=== PATIENT | female | born 1940 ===

== ENCOUNTER 2016-06-30 02:25 | Inpatient (IN) | payer MEDICARE, BC ==
--- NOTE | ~2016-06-30 | EEG ---
Electroencephalogram [facility] [address] [place]. [address] NAME: JEWELS MARTIN : 40 STATUS : ADM IN PAT#: [id number] AGE: 75 ADM/REG DATE : 06/30/16 MR#: [id number] REPORT SERV DATE: 07/02/16 DICTATED BY: DATE: REPORT STATUS : Draft TRANSCRIBED BY: MODL DATE: 07/02/16 CLINICAL INDICATIONS: Encephalopathy, right hemiparesis. DESCRIPTION: This EEG was performed using 10/20 electrode placement system. During the EEG study, the patient was noted to have generalized slowing as well as disorganized background, and the patient noted to have muscle artifact mostly in the bilateral frontal area as well as sharp wave from the bilateral posterior hemispheres that persisted throughout the EEG study. In addition, triphasic wave was also seen during the bilateral posterior hemispheres throughout the EEG study, but not as prominent as sharp waves. The photic stimulation was performed. No clear driving response was seen. Hyperventilation was not performed secondary to the patient's underlying encephalopathy. The patient was noted to have jerking episodes, it was appropriate with associated sharp wave during the EEG study. INTERPRETATION: This EEG study obtained during awake and drowsy state when the patient was encephalopathic, and it will be considered abnormal secondary to presence of persistent sharp wave in the bilateral posterior hemispheres as well as disorganized underlying cerebral background activity and generalized slowing. In addition, triphasic wave was also seen during the EEG study concerning for combination of underlying seizure disorder versus encephalopathy. Clinical correlation is recommended. [facility]/MODRobert Seth Dinero MD / [id number] CC: DO Mihaela Mcgraw M.D.
--- NOTE | ~2016-06-30 | DS ---
Discharge Summary [facility] [address] [place]. [address] NAME: JEWELS MARTIN : 40 STATUS : DIS IN PAT#: [id number] AGE: 75 ADM/REG DATE : 06/30/16 MR#: [id number] REPORT SERV DATE: 07/17/16 DICTATED BY: RAFAEL ANTON DATE: 07/16/16 REPORT STATUS : Draft TRANSCRIBED BY: MODL DATE: 07/16/16 ADMISSION DATE: 06/30/2016 DISCHARGE DATE: 07/16/2016 CONSULTANTS: Dr. Dinero and Dr. Abdul, Neurology; Dr. Xenia Huynh, Pulmonary; Dr. Javi Kelly, Infectious Disease. DISCHARGE PROBLEM LIST: 1. Right upper extremity worsening weakness, unclear etiology, but with previous stroke leaving right arm weak chronically. 2. Metabolic encephalopathy, partially medication induced. 3. Exacerbation of oxygen-dependent chronic obstructive pulmonary disease with acute hypoxia. 4. Obstructive sleep apnea, requiring CPAP. 5. Hypertension. 6. Diabetes mellitus type 2. A1c 5.5. 7. Enterococcal urinary tract infection, treated and resolved. 8. 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 9. Fibromyalgia. 10.Newly found right middle lobe nodule 2.3 x 1.8 cm with right paratracheal lymphadenopathy. 11.Left thyroid nodule. 12.History of peripheral arterial disease with previous carotid endarterectomy. HISTORY: This patient was brought to the emergency room. She has a history of old stroke 17 years ago with right-sided weakness for which she uses a motorized wheelchair, but is able to get around and actually even drives. Prior to coming to the hospital, she was reportedly much weaker on her right side than her usual and reportedly having some difficulty with getting words out. She was referred to our team for inpatient care. Imaging included on admission, CT scan of the brain without contrast showing no acute abnormalities, [id number] atrophy and white matter changes. Chest x-ray on admission with diffuse interstitial changes suggesting possible edema or infiltrate. She also had a CT of the abdomen which showed a lot of stool. No acute abnormalities there. Dilatation of the thoracic and abdominal aorta to 3.3 cm. There were pulmonary nodules noticed in the right middle and right lower lobe. CT of her lumbar spine done because of back pain showed no acute abnormalities, some disc disease at L4-5. CT of the thoracic spine, no acute abnormalities. MRI of the brain on 06/30/2016, no acute abnormalities. Unusual appearance of the right carotid with distal common carotid dilatation and stenosis at the origin of the internal carotid and no inflow seen in the right external carotid. Carotid Doppler was recommended and performed on 07/02/2016 revealing a category 1 disease on the right and left internal carotids, right vertebral with antegrade flow. Right external carotid and left vertebral artery were not visualized. CT of her cervical spine revealed levoscoliosis, could be positional, chronic peripherally sclerotic 5 x 10 probable subcortical cystic degenerative change, anterior left side of the odontoid portion of the C2 vertebrae, asymmetric nodular enlargement of the left lobe of the thyroid with the largest hypodense Discharge Summary [address] [place]. [address] NAME: JEWELS MARTIN : 40 STATUS : DIS IN PAT#: [id number] AGE: 75 ADM/REG DATE : 06/30/16 MR#: [id number] REPORT SERV DATE: 07/17/16 DICTATED BY: RAFAEL ANTON DATE: 07/16/16 REPORT STATUS : Draft TRANSCRIBED BY: VIVIEN DATE: 07/16/16 nodule 5 mm. CTA of the chest on 07/01/2016, no pulmonary embolism, patchy infiltrate right middle lobe, both lower lobes suggesting possible pneumonia, 2.3 x 1.8 cm nodule of right middle lobe, suspicious for neoplastic. Recommended for followup with PET scan or biopsy. Right peritracheal, right hilar and subcarinal adenopathy noted. Venous Doppler of her legs, no evidence of DVT. Reportedly, the patient was intolerant of BiPAP and anxious and had to be sedated, had more confusion. Neurology at one point in time did an EEG and thought some slightly diffuse slowing consistent with encephalopathy. At one point, they started her on Keppra and also gave her some Seroquel. The patient became obtunded. She was on antibiotic coverage per chance. She had pneumonia. ID saw the patient. They felt she had a urinary tract infection. Spinal tap was done on 07/07/2016. Normal white blood count. Glucose was 81. Protein slightly elevated at 52.7. Spinal fluid Gram stain and culture negative. Bacterial antigens were negative. Cryptococcal antigen negative. No encapsulated yeast seen. No acid-fast bacilli seen. The patient's daughter felt that some of her mental status changes might be that she had recently come off Zoloft. She will be started back on Zoloft by Neurology and gradually they tapered down and off her Keppra and down and off her Seroquel. As this was accomplished, the patient became steadily more alert, clear of mind, and back to her baseline mentally. The patient had hypoxia during that time which required additional respiratory support, but by the time of discharge, she has been on her usual nighttime CPAP and daytime 4 L and been maintaining quite well. She is felt to need inpatient rehab. Those arrangements have been made with [facility]. She and daughter are in agreement. It is very important for her to have follow up with her manager department, Dr. Adela Ochoa within two weeks to follow up that right middle lobe nodular finding and the adenopathy. DISCHARGE MEDICATIONS: Lipitor 20 mg at bedtime, baclofen 10 mg at bedtime, vitamin D 1000 units in the morning and 3000 units in the evening, iron sulfate 300 mg daily, Plavix 75 mg daily, Levemir 30 units subcu at bedtime, NovoLog 10 units subcu before each meal t.i.d., NovoLog level 1 before meals and at bedtime, Imdur 30 mg daily, Singulair 10 mg at bedtime, Protonix 40 mg daily, Florastor capsule twice a day, Zoloft 100 mg at bedtime, Brovana 15 mcg inhaled twice a day, Pulmicort Respules 0.5 mg twice a day, Nasonex nasal spray two puffs twice a day, DuoNeb q.4 hours p.r.n. shortness of breath, Tylenol 650 q.6 hours p.r.n. pain, aspirin 81 mg daily, Glucophage 500 mg b.i.d. (at discharge, her creatinine is 0.91), glucose tablets p.r.n. hypoglycemia. She is to wear her oxygen 4 L nasal cannula continuously. She is to wear her CPAP from home any time she sleeps whether tonight or nap time. I spent 39 minutes today with the patient and with discharge planning. DICTATED BY: Rafael Anton M.D. Discharge Summary [address] [address] NAME: JEWELS MARTIN : 40 STATUS : DIS IN PAT#: [id number] AGE: 75 ADM/REG DATE : 06/30/16 MR#: [id number] REPORT SERV DATE: 07/17/16 DICTATED BY: RAFAEL ANTON DATE: 07/16/16 REPORT STATUS : Draft TRANSCRIBED BY: VIVIEN DATE: 07/16/16 GRETA/VIVIEN Rafael Anton M.D. / [id number] CC: Rowan Deshpande M.D. Seong-joo Jeong, M.D. [facility]
--- NOTE | ~2016-06-30 | EEG ---
Electroencephalogram [address] [address] [place]. [address] NAME: JEWELS MARTIN : 40 STATUS : ADM IN PAT#: [id number] AGE: 75 ADM/REG DATE : 06/30/16 MR#: [id number] REPORT SERV DATE: 07/10/16 DICTATED BY: MIKAEL ABDUL DATE: 07/10/16 REPORT STATUS : Draft TRANSCRIBED BY: MODL DATE: 07/10/16 ELECTROENCEPHALOGRAPHY REPORT REQUESTING PHYSICIAN: Dr. Harris Bland. LOCATION OF THE PATIENT: [facility], bed 2. INTERPRETING PHYSICIAN: Mikael Abdul MD. AGE: 75. REASON FOR EEG: Abnormal behavior with seizure-like activity. 23 surface electrodes, 10-20 international placement was used. The patient was noted to have episodes of staring and unresponsiveness; intermittent left arm and shoulder jerking. The background activity when the patient appeared more alert was of 9 to 10 cycles per second located in the posterior head regions. Large amount of low-voltage beta range activity was scattered throughout which may represent medication effect. Intermittently, the patient appeared to have voluntary shaking of the left arm which did not correspond to any seizure activity. During the asleep portion of the recording, no paroxysmal or epileptiform activity was seen. Abrupt changes occurred with the patient appearing to go into very deep sleep intermittently. Sleep spindles were seen anteriorly. The EEG was observed at the patient's bedside when the patient was aroused. She began twitching her left arm and head. At that time, no paroxysmal activity was seen to correspond to her "abnormal movements". The patient kept her eyes open staring to the left. Increase of muscle activity was noted at that time. child monitor remained stable with heart rate of approximately 88 beats per minute. IMPRESSION: ABNORMAL EEG CHARACTERIZED BY PRESENCE OF INTERMITTENT ABRUPT CHANGES BETWEEN AWAKE AND SLEEP STAGE DESPITE THE CONTINUOUS RECORDING AND THE PATIENT BEING OBSERVED DURING HER SHAKING EPISODES. NO CORRESPONDING EPILEPTIFORM ACTIVITY WAS SEEN AT THAT TIME. OVERALL BACKGROUND ACTIVITY APPEARS TO BE SLIGHTLY DIFFUSELY SLOW WHICH MAY REPRESENT PRESENCE OF UNDERLYING ENCEPHALOPATHY. CLINICAL CORRELATION IS RECOMMENDED. PIERRE/VIVIEN Mikael Abdul MD / [id number] CC: Rowan Deshpande M.D.
--- NOTE | ~2016-06-30 | IDS ---
Interim Discharge Summary [facility] [address] [place]. [address] NAME: JEWELS MARTIN : 40 STATUS : ADM IN PAT#: [id number] AGE: 75 ADM/REG DATE : 06/30/16 MR#: [id number] REPORT SERV DATE: 07/03/16 DICTATED BY: COLLEEN SMILEY DATE: 07/03/16 REPORT STATUS : Draft TRANSCRIBED BY: MODL DATE: 07/03/16 ADMISSION DATE: 06/30/2016 DISCHARGE DATE: This is going to be a very brief interim summary as I am escalating care to the IMCU for possible status epilepticus, however, may be pseudo-seizure depending on if seizure is partial versus generalized. Patient is mouthing intelligent words while she is jerking her left arm, however, very short phrases such as mama and no one asked about getting a blood draw. In summary, this is a 75-year-old female with known history of chronic hypoxic respiratory failure due to COPD on 4 L oxygen with TREVON on nasal CPAP-like device, significant claustrophobia concerns with generalized anxiety disorder likelihood for which she almost has to be sedated to tolerate BiPAP. The patient has a known additional history of CAD and also PAD with carotid endarterectomy done on the right at [facility] in 04/2016. At that time, no significant bleeding and epistaxis on subcutaneous heparin or Lovenox, known history of suspected stroke, unclear radiographic confirmation, residual right-sided hemiparesis, insulin- dependent type 2 diabetes, hypertension, hyperlipidemia, fibromyalgia, appendectomy, cholecystectomy. The patient came in initially on 06/30/2016. At that time, the patient from a baseline of having a motorized wheelchair and having intelligent conversation. 9 or 10 o'clock in the evening prior to admission, she had complete loss of the right side of her body and she had dysarthria with difficulty getting words out. The patient had some mild volume overload initially requiring 5 L of oxygen on top of her 4. She was diuresed. The patient was otherwise doing well when initially was seen by Neurology for which an MRI eventually showed no acute abnormality, some chronic deep white matter, microvascular changes, and atrophic changes. No suspected sign of old stroke. Would defer to Neurology regarding that interpretation, had an abnormality of the carotids, which prompted more specific carotid ultrasound that showed findings compatible with category 1 disease. The patient has been complaining of right-sided weakness as a result. I got a cervical spine CT that showed chronically sclerotic 5 x 10 mm subcortical cystic degeneration of the C2 vertebra and an asymmetric nodular enlargement of the left lobe of the thyroid. We will consider outpatient thyroid ultrasound. The patient regarding her ROWAN and CKD on CT abdomen and pelvis. No acute abnormality except moderate amount of stool. Patient then the following day, did not do well with her overnight CPAP. Her daughter had to bring it in. The patient was significantly more hypoxic and more altered, escalated on to non-rebreather, asked for Pulmonary assistance and saw. She has significant pain in her right leg, as a result, we got an ultrasound, it was negative and did a CT of her chest rule out any PE to explain her hypoxia and rather than PE that was not shown to see possible aspiration for which we prompted her on IV Zosyn. She clinically improved the next day, but then I noticed her mental status had not much improved, and so I noticed she started jerking in her right face as I was speaking to her and asked for Neurology for EEG and Keppra load. Keppra was changed to 50 b.i.d. EEG was suggestive of a seizure, and this morning she was mentally Interim Discharge Summary [address] [address] NAME: JEWELS MARTIN : 40 STATUS : ADM IN [facility]#: [id number] AGE: 75 ADM/REG DATE : 06/30/16 MR#: [id number] REPORT SERV DATE: 07/03/16 DICTATED BY: COLLEEN SMILEY DATE: 07/03/16 REPORT STATUS : Draft TRANSCRIBED BY: MODRobert DATE: 07/03/16 better in the morning. Then, when I saw her she started spontaneously moving her left face and her left arm where as previously it was her right cheek and she was mouthing the word 'mama' and then mouthed the word 'no' when asked to take a blood withdrawal. As a result, we gave her 1 g of Keppra and 200 of IV Vimpat. I spoke to Dr. Abdul and get a stat EEG and sent the patient over [facility] for closer observation. I spoke with the daughter, who is in [place], who left on day 2 of hospitalization to [place], is possibly going to return earlier. Blood cultures, no growth to date. EEG is pending. Could consider possible LP if her mental status does not improve. IR wants a five-day washout of Plavix. We will get a text study to determine Plavix' anti-platelet efficacy. Questions were answered. It took well over 30 minutes to do. ALEJANDRO/VIVIEN Colleen Smiley DO / [id number] CC: Colleen Smiley DO
--- NOTE | ~2016-06-30 | CN ---
Consultation Report [facility] [address] [place]. [address] NAME: JEWELS GALVAN : 40 STATUS : ADM IN PAT#: [id number] AGE: 75 ADM/REG DATE : 06/30/16 MR#: [id number] REPORT SERV DATE: 07/02/16 DICTATED BY: XENIA DOE DATE: 07/01/16 REPORT STATUS : Draft TRANSCRIBED BY: MODL DATE: 07/01/16 PULMONARY CONSULTATION DATE OF CONSULTATION: 07/01/2016 REASON FOR CONSULTATION: Acute worsening of hypoxia. HISTORY OF PRESENT ILLNESS: Note-the history is taken primarily from the available medical record as the patient is very sleepy and provides a vague history only. Ms Galvan is a 75-year-old white female with COPD, obstructive sleep apnea-on CPAP, chronic hypoxia, on supplemental oxygen at a flow rate of 4 L/minute and prior CVA who was admitted with possible recurrent CVA. She was noted to have an elevated BNP, but no evidence of COPD exacerbation on admission. She was diuresed and treated with her home medications for COPD as well as her home CPAP and supplemental oxygen. She was noted to have marked worsening in hypoxia today, so Pulmonary was consulted. She has a remote history of the CVA with residual right hemiparesis. Prior to admission, she noted a marked increase in her right- sided weakness which she described at admission as "complete loss of the use of the right side of her body." Workup has been ongoing for her right-sided weakness. She was being diuresed as described above due to an elevated BNP and evidence of pulmonary edema on chest x-ray. She was also noted to have hypoxia beyond her baseline that responded to her supplemental oxygen flow rate being increased to 5 L/minute. She was doing well until earlier today when she developed the marked increase in hypoxia as described. PAST MEDICAL HISTORY: 1. COPD. 2. Chronic hypoxia-on supplemental oxygen at a flow rate of 4 L/minute via nasal cannula 24 hours per day. 3. Obstructive sleep apnea-on CPAP. 4. Carotid artery disease with right carotid endarterectomy, 04/2016. 5. Remote history of CVA with residual right hemiparesis. 6. Insulin-requiring diabetes. 7. Hyperlipidemia. 8. Hypertension. 9. Fibromyalgia. 10.Tonsillectomy. 11.Hysterectomy. 12.Cholecystectomy. 13.Appendectomy. 14.Previous skin cancer. 15.Iron deficiency. 16.Seasonal allergies. 17.GERD. Consultation Report [facility] [address] [place]. [address] NAME: JEWELS GALVAN : 40 STATUS : ADM IN PAT#: [id number] AGE: 75 ADM/REG DATE : 06/30/16 MR#: [id number] REPORT SERV DATE: 07/02/16 DICTATED BY: XENIA DOE DATE: 07/01/16 REPORT STATUS : Draft TRANSCRIBED BY: VIVIEN DATE: 07/01/16 FAMILY HISTORY: There is no documented family history of pulmonary diseases. SOCIAL HISTORY: The patient admits to a remote history of smoking, but is unable to give further details. Per the medical record, she is currently not smoking. She has no history of alcohol use, past/present drug use or chewing tobacco. There is no documented history of occupational exposures. MEDICATIONS: Outpatient and inpatient medications were reviewed and are as documented in the record. Pulmonary medications as an outpatient include Singulair 10 mg once daily, albuterol rescue inhaler one puff as needed, Combivent one puff q.6 hours, mometasone one puff daily, and Anoro Ellipta one dose daily. ALLERGIES: CODEINE AND HEPARIN. REVIEW OF SYSTEMS: A very limited systems review was conducted and is remarkable for the symptoms as described in the history of present illness. PHYSICAL EXAMINATION: VITAL SIGNS: Temperature 98.2 degrees, heart rate 79, blood pressure 111/61, respiratory rate 16, oxygen saturation 98% on 80% oxygen/27 L Vapotherm. GENERAL: Elderly white female appear sleeping without CPAP. Snoring mildly. Awakens to tactile stimuli, but is somewhat confused. Does not respond all questioning though responses are appropriate. HEENT: Normocephalic. Atraumatic. There is no scleral icterus. The conjunctivae are clear. NECK: Supple. No lymphadenopathy is noted. LUNGS: Fair effort. There are diminished breath sounds throughout. There are few coarse rhonchi particularly in the anterior lung wall. There are no crackles or wheezes. HEART: Regular rate and rhythm. No ectopy is noted. ABDOMEN: Soft. Nontender. Nondistended. There are normal bowel sounds in all four quadrants. BILATERAL EXTREMITIES: There is bilateral lower extremity tenderness to palpation. There is trace pretibial edema, but no cyanosis or clubbing. NEUROLOGIC: A limited exam was conducted as the patient is resistant following commands and sleepy as described above. There is significant right-sided weakness. SKIN: No rashes are noted. There is generalized pallor. LABORATORY RESULTS: Labs were reviewed and are as documented in the record. The white blood cell count is 8.8. On admission, the BNP was 586.9. The arterial blood gas done today revealed a pH of 7.43, pCO2 of 41, and a pO2 of 57 on supplemental oxygen at 90%. IMAGING: The chest x-ray done on admission revealed the left lower lobe infiltrate and increased interstitial markings. Consultation Report [facility] [id number] [facility] [place]. [address] NAME: JEWELS GALVAN : 40 STATUS : ADM IN [facility]#: [id number] AGE: 75 ADM/REG DATE : 06/30/16 MR#: [id number] REPORT SERV DATE: 07/02/16 DICTATED BY: XENIA DOE DATE: 07/01/16 REPORT STATUS : Draft TRANSCRIBED BY: VIVIEN DATE: 07/01/16 The chest x-ray done today revealed bilateral lower lobe and right middle lobe infiltrates with some right lower lobe atelectasis. The CT angiogram of the chest done today revealed diffuse mediastinal lymphadenopathy, bilateral lower lobe and right middle lobe infiltrates, and the right middle lobe nodule. No pulmonary emboli were noted. ASSESSMENT AND PLAN: Ms galvan is a 75-year-old white female with a left lower lobe infiltrate plus a new right middle and right lower lobe infiltrate that has occurred since admission, possible new cerebrovascular accident with significant increase in right-sided weakness, increased hypoxia above baseline, history of hypoxia, nodular density in the right lower lobe, and mediastinal lymphadenopathy on CT angiogram of the chest done today and known obstructive sleep apnea. 1. The new infiltrate suspicious for aspiration, particularly in this patient with this new right-sided weakness as described. 2. There is no evidence of chronic obstructive pulmonary disease exacerbation, but the patient does have a history of chronic obstructive pulmonary disease. 3. She has been on Levaquin and Zosyn. 4. Recommend continuing antibiotics. 5. Check sputum-Gram stain and routine culture. 6. Aspiration precautions-would keep the patient n.p.o. until further notice. 7. I recommend swallow evaluation. 8. Bronchodilators-DuoNeb q.4 hours, continue Brovana. 9. Pulmonary toilet-add EzPAP to her current regimen. 10.She is on systemic steroids, but these can be discontinued as there is no evidence of chronic obstructive pulmonary disease exacerbation. 11.We would continue nebulized steroids. 12.Check BNP and continued diuresis if indicated. 13.Check with the chest x-ray in the morning. 14.Check procalcitonin. 15.She has a history of obstructive sleep apnea as noted and uses her home CPAP, but would use hospital BiPAP here with sleep. 16.Titrate her supplemental oxygen as needed, but do not decrease below her baseline flow rate of 4 L/minute. 17.As described, she has a nodular density in the right lower lobe and mediastinal lymphadenopathy. She would benefit from additional workup. We would discuss possible bronchoscopy with biopsy versus additional imaging such as a PET scan or a followup CT scan of the chest when the patient is more alert and appropriate. Thank you very much for this consultation. Further recommendations to follow depending on the patient's response to therapy. PS/MODL Consultation Report [place] [address] [id number] [facility] [place]. [address] NAME: JEWELS GALVAN : 40 STATUS : ADM IN PAT#: [id number] AGE: 75 ADM/REG DATE : 06/30/16 MR#: [id number] REPORT SERV DATE: 07/02/16 DICTATED BY: XENIA DOE DATE: 07/01/16 REPORT STATUS : Draft TRANSCRIBED BY: VIVIEN DATE: 07/01/16 Xenia Doe M.D. / [id number] CC: DO Mihaela Mcgraw M.D.
--- NOTE | ~2016-06-30 | HP ---
History And Physical [id number] [place]. [address] NAME: JEWELS GALVAN : 40 STATUS : REG ER PAT#: [id number] AGE: 75 ADM/REG DATE : 06/30/16 MR#: [id number] REPORT SERV DATE: 06/30/16 DICTATED BY: ISSA MATA DATE: 06/30/16 REPORT STATUS : Draft TRANSCRIBED BY: MODL DATE: 06/30/16 DATE OF ADMISSION: 06/30/2016 POINT OF ENTRY: [facility] Emergency Department. CHIEF COMPLAINT: Right-sided weakness. HISTORY OF PRESENT ILLNESS: Ms. 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 The patient states that approximately 9 or 10 o'clock this evening, she was unable to transfer from her motorized wheelchair to the toilet which she normally is able to do. She describes "complete loss of the use of the right side of her body." The patient also states that for the past few days to few weeks, she has also been having difficulties in getting her words out occasionally. Initial evaluation in the emergency department notable for stable vital signs although was mildly hypoxemic on her baseline 4 L by nasal cannula, requiring up to 5 L. Labs notable for a BNP of 587. Chest x-ray showed some intravascular volume overload. CT scan of the brain was negative. She was subsequently admitted to the Hospitalist Service and was given Lasix 40 mg IV. REVIEW OF SYSTEMS: Comprehensive system otherwise negative unless listed in history of present illness. PAST MEDICAL HISTORY: 1. History of cerebrovascular accident with residual right-sided hemiparesis. 2. Carotid arterial disease status post right carotid endarterectomy at [facility] April 2016. 3. Insulin-dependent diabetes mellitus type 2. 4. Hypertension. 5. Hyperlipidemia. 6. COPD on 4 L by nasal cannula. 7. Skin cancer. 8. Fibromyalgia. 9. Obstructive sleep apnea, on CPAP therapy. SURGICAL HISTORY: 1. Right carotid endarterectomy. 2. Tonsillectomy. 3. Abdominal hysterectomy. 4. Cholecystectomy. 5. Appendectomy. History And Physical [address] [place]. [address] NAME: JEWELS GALVAN : 40 STATUS : REG ER PAT#: [id number] AGE: 75 ADM/REG DATE : 06/30/16 MR#: [id number] REPORT SERV DATE: 06/30/16 DICTATED BY: ISSA MATA DATE: 06/30/16 REPORT STATUS : Draft TRANSCRIBED BY: VIVIEN DATE: 06/30/16 ALLERGIES: ARE TO CODEINE. HOME MEDICATIONS: 1. Albuterol one puff inhalation q.4 hours p.r.n. 2. Aspirin 81 mg daily. 3. Atorvastatin 20 mg at bedtime. 4. Baclofen 10 mg t.i.d. 5. Vitamin D 1000 units daily. 6. Vitamin D 3000 units daily. 7. Plavix 75 mg daily. 8. Ferrous sulfate 325 mg t.i.d. 9. Glipizide 10 mg daily. 10.Insulin 50 units before meals. 11.Levemir 50 units at bedtime. 12.Combivent 1 puff inhalation q.i.d. 13.Metformin 500 mg b.i.d. 14.Toprol-XL 100 mg daily. 15.Nasonex two sprays nasal b.i.d. 16.Mometasone one puff inhalation daily. 17.Singulair 10 mg at bedtime. 18.Protonix 40 mg daily. 19.Anoro Ellipta one inhalation daily. 20.Valsartan 320 mg daily. SOCIAL HISTORY: Denies any tobacco, alcohol, or illicits. FAMILY HISTORY: Mother with coronary artery disease. Father from complication of gunshot wound. Siblings with history of stroke. LABS IMAGIN. White count is 11.1, hemoglobin 12.2, hematocrit is 38.8, platelet count is 351, and INR 1.2. 2. Sodium is 144, potassium 3.9, chloride 109, carbon dioxide 25, BUN 18, creatinine 1.08, glucose is 142, calcium is 9.4, protein 7.3, albumin is 3.0, bilirubin is 0.7, ALT 13, AST 25, alkaline phosphatase is 123. 3. Troponin 0.03. 4. BNP is 587. 5. Urinalysis; specific gravity is 1.016, trace ketones, but no evidence of any infection. 6. Chest x-ray per my review shows some pulmonary venous congestion, intravascular volume overload. No prior for comparison. This is per my review, again. 7. EKG per my review shows normal sinus rhythm with no evidence of any acute ischemic infarction, does show some poor R-wave progression. 8. CT scan of the brain shows no acute changes but does show some chronic ischemic changes. PHYSICAL EXAMINATION: History And Physical [address] [address] NAME: JEWELS GALVAN : 40 STATUS : REG ER PAT#: [id number] AGE: 75 ADM/REG DATE : 06/30/16 MR#: [id number] REPORT SERV DATE: 06/30/16 DICTATED BY: ISSA MATA DATE: 06/30/16 REPORT STATUS : Draft TRANSCRIBED BY: VIVIEN DATE: 06/30/16 VITAL SIGNS: Temperature is 97.9 degrees Fahrenheit, pulse is 82, respirations 16, saturating 91% on 5 L by nasal cannula. Blood pressure 145/78. GENERAL: The patient is awake, alert, in no acute distress. Resting comfortably. She is a chronically ill-appearing elderly female. No family is at bedside. HEENT: Atraumatic and normocephalic. Moist mucous membranes. Pupils are equal, round, reactive to light and accommodation. Extraocular eye movements are intact. No scleral icterus. NECK: No jugular venous distention. No carotid bruits. CARDIAC: Regular rate and rhythm. No murmurs, rubs, or gallops. Normal S1, S2. LUNGS: On oxygen, but in no respiratory distress. Does have some decreased breath sounds at bases as well as prolonged respiratory phase but no wheezes, rhonchi, or crackles appreciated. ABDOMEN: Soft, nontender, nondistended with good bowel sounds. No rebound, guarding, or rigidity. EXTREMITIES: Warm and well perfused. No cyanosis, clubbing, or edema. Does have some evidence of chronic venous stasis changes in lower extremities bilaterally. SKIN: Warm and dry except for noted above. PSYCH: Affect is appropriate. NEURO: Alert and oriented x3. Cranial nerves 2 through 12 are grossly intact but limited by patient's effort. Strength is 3/5 to 4/5 right side, 4/5 to 5/5 left side, again limited by the patient's effort. ASSESSMENT AND PLAN: Ms. Galvan is a 75-year-old female with history of stroke and right-sided hemiparesis who presents with acute onset of worsening right-sided weakness with inability to transfer from her wheelchair to the toilet concerning for possible cerebrovascular accident versus transient ischemic attack. PROBLEM LIST: 1. Worsening right-sided weakness, concerning for possible stroke. 2. Expressive aphasia. 3. Confusion. 4. Intravascular volume overload. 5. Chronic obstructive pulmonary disease, on 4 L by nasal cannula. 6. Insulin-dependent diabetes mellitus, type 2. PLAN: 1. Right-sided weakness. The patient states her right-sided weakness while still worsened at baseline has started to improve so one is concerned for possible TIA given improvement versus maybe superimposed stroke. CT scan of the brain was unremarkable. We will admit the patient to Hospitalist Service, consult Neurology for assistance, check an MRI MRA in the morning. The patient is already on aspirin, statin, Plavix as well as a beta ruchi. 2. Intravascular volume overload. The patient denies any history of congestive heart failure or coronary artery disease but clearly does have evidence of intravascular volume overload. She will receive 40 of IV Lasix here in the emergency department. Follow up echocardiogram in the morning. 3. Expressive aphasia. Unclear as to the timeline of patient's complaints. We will again History And Physical [address] [address] NAME: JEWELS GALVAN : 40 STATUS : REG ER PAT#: [id number] AGE: 75 ADM/REG DATE : 06/30/16 MR#: [id number] REPORT SERV DATE: 06/30/16 DICTATED BY: ISSA MATA DATE: 06/30/16 REPORT STATUS : Draft TRANSCRIBED BY: MODL DATE: 06/30/16 follow up Neurology consultation and MRI. 4. Confusion, not clear as to what the patient's baseline is at this time as there were no family members at bedside to provide corroborating history. Urinalysis is unremarkable. We will check some basic studies including urine drug screen, thyroid function studies, ammonia level, and vitamin B12 levels. Limit sedating medications. 5. COPD. No evidence of acute exacerbation at this time. Continue to monitor. 6. Insulin-dependent diabetes mellitus type 2, holding patient's oral hypoglycemics. Placed her on level 2 sliding scale. Check hemoglobin A1c. 7. DVT prophylaxis. Lovenox subcu. CODE STATUS: The patient wished to be full code. BELEN/VIVIEN Issa Mata MD / [id number] CC: Mihaela Yates M.D.
--- NOTE | ~2016-06-30 | CN ---
Consultation Report [facility] [address] [place]. [address] NAME: JEWELS MARTIN : 40 STATUS : ADM IN PAT#: [id number] AGE: 75 ADM/REG DATE : 06/30/16 MR#: [id number] REPORT SERV DATE: 07/04/16 DICTATED BY: DOT KELLY DATE: 07/04/16 REPORT STATUS : Draft TRANSCRIBED BY: MODL DATE: 07/04/16 INFECTIOUS DISEASE CONSULT DATE OF CONSULTATION: 07/04/2016 REASON FOR CONSULTATION: Possible central nervous system infection. HISTORY OF PRESENT ILLNESS: This is a 75-year-old female, who cannot contribute to the history herself. The history is obtained from the chart. She has a history of a CVA in the past, with right-sided hemiparesis, along with diabetes, hyperlipidemia, and hypertension. According to the Neurology consultation, the patient had complained of a couple months of word-finding difficulties and some memory issues. On 06/29/2016, she developed worsening weakness on her right side of the body such that she was unable to transfer from her wheelchair to the toilet. Initially, on evaluation in the ER. She was awake and alert, but did have some problems with word finding. She did have some mild confusion, mild dysarthria, and stuttering of speech. The patient did not apparently complained of headache, and did not have fever on presentation, and has not had fever since her 06/30/2016 admission. The patient underwent extensive imaging workup as outlined below, which showed no acute findings, as there was concern mainly that she may have suffered another stroke. The patient then developed worsening respiratory distress requiring increasing oxygen support. She had a CT angiography of the chest done on 07/01/2016, which is reviewed and was interpreted as showing no evidence of pulmonary embolus, but patchy infiltrates in the right middle lobe and both lower lobes, suggestive of pneumonia, along with an indeterminate 2.3 x 1.8 cm nodule in the right middle lobe, and some right paratracheal, right hilar, and subcarinal adenopathy. The patient actually received a dose of Levaquin on 06/30/2016, and on 07/01/2016 the Zosyn was added, as there was concern for possible aspiration. She was evaluated by Pulmonary Medicine. She was briefly on steroids between 06/30/2016 and 07/01/2016. Her respiratory status overall has improved over the last 48 hours, although, she remains on 15 L of oxygen via mask. However, her mental status overall is worse and she has had jerking movements of her left arm. The patient did have an EEG, but apparently there was no definite seizure activity, although, she was started on Keppra. Lumbar puncture was ordered, but the patient was on Plavix on admission and her last dose was May 02 and therefore she cannot undergo this until she has been off the Plavix for five days. Antibiotics were changed this morning from the Zosyn and Levaquin to vancomycin and ceftriaxone to cover the possibility of bacterial meningitis. The patient was transferred from the intermediate care unit to the regular floor today. The patient cannot answer any of my questions. PAST MEDICAL HISTORY: In addition to that mentioned above is notable for right carotid endarterectomy in April of [address] [facility] [place]. She also has COPD, fibromyalgia, obstructive sleep apnea. PAST SURGICAL HISTORY: Other surgeries include cholecystectomy, appendectomy, hysterectomy, and tonsillectomy. Consultation Report [address] [address] NAME: JEWELS MARTIN : 40 STATUS : ADM IN [facility]#: [id number] AGE: 75 ADM/REG DATE : 06/30/16 MR#: [id number] REPORT SERV DATE: 07/04/16 DICTATED BY: DOT KELLY DATE: 07/04/16 REPORT STATUS : Draft TRANSCRIBED BY: VIVIEN DATE: 07/04/16 ALLERGIES: CODEINE. PRESENT MEDICATIONS: In addition to the antibiotics mentioned include Decadron, Lipitor, baclofen, Bumex, vitamin D, iron, Flonase, Arixtra ,insulin sliding scale, Imdur Toprol-XL, singular, Protonix, Florastor, Diovan, Levemir, Keppra, and lacosamide. SOCIAL HISTORY: Nonsmoker and nondrinker. FAMILY HISTORY: According to the chart mother had coronary artery disease and some siblings have had strokes. REVIEW OF SYSTEMS: Review of systems cannot otherwise be obtained from the patient. PHYSICAL EXAMINATION: VITAL SIGNS: The patient weighs 89 kg. She is afebrile. Blood pressure 147/76, pulse has been in the 110 to 116 range, and respiratory rate 18 to 20. GENERAL: The patient is lying in bed. Her gazes to the right. She does not respond to questions except an occasional grunting noise. She would not follow any commands for me. HEAD AND NECK: She does seem to have some meningismus when I tried to flex her neck. She will open her mouth for me. The conjunctivae show some minimal injection on the left. No significant adenopathy in the neck. LUNGS: Diminished breath sounds. Few soft rhonchi in the lateral bases. CARDIAC: Tachycardic regular. Normal S1 and S2. No murmur, gallop, or rub. ABDOMEN: Mildly obese. Soft and nontender. No masses appreciated. EXTREMITIES: Show scattered ecchymoses on her arms. Trace edema. She has two peripheral IVs without phlebitis. NEUROLOGIC: Exam is notable for the mental status as described above. She has increased muscle tone on the right. The right toe is downgoing with Babinski testing left toe was upgoing. Reflexes are difficult to assess. LABORATORY STUDIES: White blood cell count on admission 11.1, it was 8.5 on 07/01/2016, 12.7, yesterday, 12.9 today; hemoglobin 12.0, platelets 299. Procalcitonin on 07/02/2016 was 0.05, today 0.14; creatinine 0.95. Albumin 3.0. On admission alkaline phosphatase was 123. Other liver function tests normal. CPK was normal. Most recent blood gas shows a pH of 7.41, pCO2 of 47, PO2 of 74 on 40% FiO2 yesterday. Microbiology studies; admission urinalysis are negative. On 07/01/2016, blood cultures x2 sets negative, although, after first dose of antibiotics. On 07/02/2016, urinalysis from her Arce catheter shows large leukocyte esterase, 150 white blood cells, and urine culture is growing greater than 100,000 colonies of gram-positive cocci. IMAGING STUDIES: On admission, she had a CT scan of the brain without IV contrast. CT scan of the abdomen and pelvis. CT scan of the cervical, thoracic, and lumbar spine. MRI of the brain and MRA. None of these showed any acute findings. Initial chest x-ray appeared Consultation Report [address] [place]. [address] NAME: JEWELS MARTIN : 40 STATUS : ADM IN [facility]#: [id number] AGE: 75 ADM/REG DATE : 06/30/16 MR#: [id number] REPORT SERV DATE: 07/04/16 DICTATED BY: DOT KLELY DATE: 07/04/16 REPORT STATUS : Draft TRANSCRIBED BY: VIVIEN DATE: 07/04/16 clear, but followup chest x-ray on 07/01/2016, showed developing infiltrate left greater than right bases and CT scan is as noted above. Carotid ultrasound on 07/02/2016, showed no notable findings. Lower extremity ultrasound was negative for a DVT. Repeat CT scan of the brain on 07/02/2016 negative. Chest x-rays have improved over the last few days. IMPRESSION: Probable pneumonia and possible aspiration. The patient also may have a catheter associated urinary tract infection. Overall, I doubt central nervous system infection here. Certainly, bacterial meningitis seems unlikely just given the overall history here, with the onset of this right-sided weakness, but lack of headache and lack of fever. Unfortunately, we have no blood cultures prior to antibiotics though. She does seem to have some meningismus on exam at present, but the exam is difficult. Must also consider the possibility of herpes encephalitis. PLAN: Despite the relatively low likelihood I think of a central nervous system infection, since we cannot do a lumbar puncture for three more days. I will continue the vancomycin and ceftriaxone that were started this morning and add IV acyclovir and follow with you. RITA/VIVIEN Dot Kelly M.D. / [id number] CC: Harris Bland,
--- NOTE | ~2016-06-30 | CN ---
Consultation Report [facility] [address] [place]. [address] NAME: JEWELS MARTIN : 40 STATUS : ADM Raquel PAT#: [id number] AGE: 75 ADM/REG DATE : 06/30/16 MR#: [id number] REPORT SERV DATE: 06/30/16 DICTATED BY: DATE: REPORT STATUS : Draft TRANSCRIBED BY: MODL DATE: 06/30/16 NEUROLOGY CONSULTATION DATE OF CONSULTATION: 06/30/2016 REASON FOR CONSULTATION: Possible stroke. HISTORY OF PRESENT ILLNESS: This is a 75-year-old female with reported previous stroke, resulting in significant right-sided weakness. The patient reports that after stroke, was unable to use the right side at all. After rehab, the patient regained ability to use the right upper extremity for activities of daily living, but still unable to use the right lower extremity and she usually requires a motorized wheelchair for ambulation. The patient was noted to have roughly two months' duration of word finding difficulties that appeared to be mild, as well as memory difficulties with the patient reporting the symptom worse overnight on 06/29/2016 at roughly 9 p.m. The patient also reports worsening right-sided weakness to the point where the patient lost the usage of the right upper extremity as well as difficulty using right lower extremity, unable to get back to the motorized wheelchair. The patient also reports numbness in the right side with the patient reporting a significant difficulty talking as well as a significant difficulty remembering what is going on. The patient's talking appeared to have somewhat improved with the patient's mentation improved overnight. The patient still complains of a significant right-sided weakness, especially with the right upper extremity with the patient still having significant right-sided numbness, compared to prior. The patient in addition also complains of a worsening respiratory issue with the patient having had a breathing problem since the hospitalization in the past. The patient reports worsening baseline respiration even after the patient has to be placed on nasal cannula. No other changes in medication or illness were otherwise reported. No recent chest pain and no recent fever was reported by the patient. REVIEW OF SYSTEMS: Otherwise negative, except for those mentioned in the HPI. PAST MEDICAL HISTORY: Significant for a history of stroke with residual right-sided weakness as well as a history of carotid endarterectomy surgery in 04/2016 with the patient apparently going to rehab afterwards. The patient does have a history of COPD and reports worsening respiratory issues, history of fibromyalgia, obstructive sleep apnea, hyperlipidemia, hypertension, insulin-dependent diabetes. SOCIAL HISTORY: The patient denies current tobacco, alcohol, or recreational drug usage. ALLERGIES: THE PATIENT REPORTS ALLERGY TO CODEINE. HOME MEDICATIONS: Consist of albuterol, aspirin, Lipitor, atorvastatin, baclofen, vitamin D, ferrous sulfate, glipizide, Levemir insulin, Combivent, metformin, Toprol, Nasonex, Singulair, Protonix, Anoro Ellipta, valsartan, mometasone. Consultation Report [id number] [facility] [place]. [address] NAME: JEWELS MARTIN : 40 STATUS : ADM Raquel PAT#: [id number] AGE: 75 ADM/REG DATE : 06/30/16 MR#: [id number] REPORT SERV DATE: 06/30/16 DICTATED BY: DATE: REPORT STATUS : Draft TRANSCRIBED BY: MODL DATE: 06/30/16 FAMILY HISTORY: Significant for coronary artery disease as well as stroke. PHYSICAL EXAMINATION: VITAL SIGNS: At the time of hospital admission overnight, the patient was noted to have vital signs with T-max of 98.1, heart rates of 83 to 97, respirations of 16 to 18, and blood pressure of 134 to 145 over 78 to 83. GENERAL: The patient is well developed, well nourished, in no acute distress. CARDIOVASCULAR: Regular rate and rhythm. No carotid bruits were otherwise auscultated. PULMONARY: Clear to auscultation bilaterally. NEUROLOGICAL: Generally, the patient is mildly anxious with mild stuttering of speech as well as some mild dysarthria. Some word-finding difficulty was also noted at the time of my evaluation. Able to follow simple and two-step commands, although with some mild left/right confusion at the time of my evaluation. Difficulties with registration and recall at the time of my evaluation. Cranial nerves 2 through 12, pupils equal, round, and reactive to light. Extraocular eye movement was noted to be intact with intact [id number] response. The facial expression is mild decreased in the nasolabial fold on the right with the patient reporting a decreased sensation in the right cranial nerve V1, V2, and V3 distribution. Reports intact sensation in the left cranial nerve V1, V2, and V3 distribution. Midline tongue. Normal palatal movement. Mild decreased hearing. The patient was noted to have increased muscle tone as well as contracture in the right upper extremity with increased muscle tone in the right lower extremity. Deep tendon reflex was 3+ in the right upper extremity and 4+ with some spontaneous coldness in the right lower extremity. The patient otherwise demonstrated 3/5 for proximal right upper extremity strength and 1/5 for right upper extremity music manager strength with the patient demonstrating 5/5 for left upper extremity and left lower extremity strength. The patient demonstrated 1/5 for right lower extremity strength and reports a decreased sensation in the right upper and right lower extremity. Gait was not evaluated secondary to the patient's weakness. The patient at baseline uses a motorized wheelchair for ambulation. No ataxia on [id number] examination in the left upper extremity was noted. LABORATORY STUDIES: Demonstrate sodium 144, potassium 3.9, chloride 109, bicarb 25, BUN of 18, creatinine 1.08, glucose of 142, calcium of 9.4. Serum cholesterol 107, HDL of 26, LDL of 46, and triglyceride of 178. Vitamin B12 was 679. Folate of 48. Free T4 of 1.36. Hemoglobin A1c was 5.5 with ammonia level of 28. BNP of 586.9. White blood cell count of 11.1, hemoglobin of 12.2, hematocrit of 38.8, platelet count of 351. Urinalysis demonstrated greater than 500 protein, otherwise negative leukocyte esterase and negative nitrite. CT scan of her brain demonstrated no significant acute process. The MRI and MRA are pending. IMPRESSION: Right hemiparesis, worse from prior. Concern for a possible new stroke versus a systemic illness causing the patient's symptoms. MRI of the brain without contrast is pending, same with the MRA of the head and neck. Echocardiogram is also pending. We will continue aspirin and Plavix. We will increase the Lipitor to 80 mg p.o. q.h.s. We will also obtain PT/OT to evaluate and treat. NIH Stroke Scale is noted to be 8. Consultation Report [id number] [place]. [address] NAME: JEWELS MARTIN : 40 STATUS : ADM Raquel PAT#: [id number] AGE: 75 ADM/REG DATE : 06/30/16 MR#: [id number] REPORT SERV DATE: 06/30/16 DICTATED BY: DATE: REPORT STATUS : Draft TRANSCRIBED BY: MODL DATE: 06/30/16 RECOMMENDATIONS: 1. MRI of the brain without contrast, which is pending. 2. MRA of the head and neck without contrast, which is also pending. 3. Echocardiogram, pending. 4. Aspirin and Plavix. 5. Lipitor 80 mg p.o. q.h.s. 6. PT/OT. 7. We will check albumin level with morning labs, this patient was noted to have nephrotic type of syndrome as well as edema in bilateral lower extremity. 8. We will check a CT scan of the abdomen and pelvis without contrast for lower back pain as well as abdominal pain. [facility] Seth Dinero MD / [id number] CC: DO Mihaela Mcgraw M.D.
--- NOTE | ~2016-06-30 | DS ---
Discharge Summary [facility] [address] [facility] [place]. [address] NAME: JEWELS MARTIN : 40 STATUS : ADM IN [facility]#: [id number] AGE: 75 ADM/REG DATE : 06/30/16 MR#: [id number] REPORT SERV DATE: 07/06/16 DICTATED BY: Dariusz KEITA DATE: 07/06/16 REPORT STATUS : Draft TRANSCRIBED BY: MODL DATE: 07/06/16 ADMISSION DATE: 06/30/2016 DISCHARGE DATE: DATE OF INTERIM SUMMARY: 07/06/2016. DIAGNOSES AT THE TIME OF INTERIM SUMMARY: Persistent encephalopathy right-sided weakness of uncertain etiology, hypoxic respiratory failure, acute on chronic COPD, insulin-requiring diabetes, hypertension, possible aspiration pneumonia, possible [employer] infection, and enterococcal urinary tract infection. ACTIVE CONSULTANTS: Infectious Disease, Pulmonology and Neurology. PROCEDURES: Planned lumbar puncture for 07/07/2016. BRIEF HOSPITAL COURSE: A 75-year-old female with complex medical history, was admitted with encephalopathy in the setting of prior stroke and right-sided weakness with multiple comorbidities, started on empiric antimicrobial therapy for the possibility of aspiration pneumonia with consult to Pulmonary Service. With regard to her encephalopathy and weakness, Neurology was consulted. MRI of the brain and MRA of the brain showed no new lesion. EEG showed no evidence of seizure activity, and they are currently planning a lumbar puncture. This has been delayed because of previous Plavix administration, which had been held on admission. She should be able to safely have a lumbar puncture to complete evaluation on 07/07/2016. The patient had been on broad-spectrum antimicrobial therapy, but this has been narrowed to Zosyn only which is currently treating the possibility of aspiration pneumonia as well as a known enterococcal UTI that was present on admission. The patient continues to be followed closely by the Neurology Service, the Hospitalist Service, the Pulmonary Service and the ID Service. She currently continues on IV antiepileptic medications per Neurology. We will continue her ongoing other supportive medications with close monitoring of her clinical status and lab data. Further recommendations for ongoing treatment pending results of lumbar puncture which should be done 07/07/2016. Another member of the Hospitalist Team will manage the patient's care starting on 07/07/2016 with ongoing co-management by the specialties mentioned above. DICTATED BY: Dariusz Keita M.D. [facility]IV[facility] Dariusz Keita M.D. / [id number] Discharge Summary [address] [address] NAME: JEWELS MARTIN : 40 STATUS : ADM IN PAT#: [id number] AGE: 75 ADM/REG DATE : 06/30/16 MR#: [id number] REPORT SERV DATE: 07/06/16 DICTATED BY: Dariusz KEITA DATE: 07/06/16 REPORT STATUS : Draft TRANSCRIBED BY: VIVIEN DATE: 07/06/16 CC: Rowan Davila M.D.
[2016-06-30 02:48] LABS: BASOPHILS 0.2 %; BASOPHILS ABSOLUTE 0.02 10/3/uL (0.0-0.16); EOSINOPHILS 1.1 %; EOSINOPHILS ABSOLUTE 0.12 10/3/uL (0.0-0.53); HEMATOCRIT 38.8 % (36.0-48.0); HEMOGLOBIN 12.2 g/dL (12.0-16.0); IMMATURE GRANULOCYTES 0.3 %; IMMATURE GRANULOCYTES ABSOLUTE 0.03 10/3/uL (0.0-0.11); LYMPHOCYTES ABSOLUTE 2.77 10/3/uL (0.67-4.30); MEAN CORPUS HGB CONC 31.4 g/dL (32.0-36.0); MEAN CORPUSCULAR HEMOGLOB 27.1 pg (26.0-34.0); MEAN CORPUSCULAR VOLUME 86.2 fL (80-100); MEAN PLATELET VOLUME 9.9 fL (9.2-13.0); MONOCYTES 6.2 %; MONOCYTES ABSOLUTE 0.69 10/3/uL (0.21-1.20); NEUTROPHILS 67.2 %; NEUTROPHILS ABSOLUTE 7.43 10/3/uL (2.02-8.40); PLATELET COUNT 351 10/3/uL (150-400); RBC DISTRIBUTION WIDTH 15.5 % (12.0-16.0); WHITE BLOOD CELLS 11.1 10/3/uL (4.5-10.5)
[2016-06-30 02:51] LABS: MANUAL DIFF NO %
[2016-06-30 02:59] LABS: INTERNATIONAL NORMAL RATI 1.2 UNITS (-); PROTIME (NOT ORD) 15.4 SEC (12.0-14.5)
[2016-06-30 03:00] LABS: PARTIAL THROMBO TIME 36.4 SEC (22.5-37.2)
[2016-06-30 03:07] LABS: A/G RATIO 0.7 (0.7-1.9); ALKALINE PHOSPHATASE 123 U/L (45-117); BUN (BLOOD UREA NITROGEN) 18 MG/DL (6-23); CALCIUM, SERUM 9.4 MG/DL (8.5-10.4); CHLORIDE, SERUM 109 MMOL/L (96-112); CO2 (CARBON DIOXIDE) 25 MMOL/L (24-34); CREATININE 1.08 MG/DL (0.55-1.02); GFR AFRICAN AMERICAN 58 ML/MIN (>=60); GFR NON AFRICAN AMERICAN 50 ML/MIN (>=60); GLOBULIN 4.3 G/DL (2.5-4.1); GLUCOSE, SERUM 142 MG/DL (60-99); POTASSIUM, SERUM 3.9 MMOL/L (3.5-5.3); SGOT(AST) 25 U/L (5-40); SGPT(ALT) 13 U/L (5-65); SODIUM, SERUM 144 MMOL/L (135-148); TOTAL BILIRUBIN 0.4 MG/DL (0-1.2); TOTAL PROTEIN 7.3 G/DL (6.0-8.5); TROPONIN I 0.03 NG/ML (<0.05)
[2016-06-30 03:11] LABS: ASCORBIC ACID (UR NOT ORDER) NEG (NEG); BILIRUBIN, URINE NEGATIVE (NEG); ER URINALYSIS TAT 0 Hrs 00 Mins; KETONE, URINE TRACE MG/DL (NEG); LEUKOCYTE ESTERASE(NOT OR NEG (NEG); NITRITE (URINE) NEG (NEG); WBC (NOT ORDERED) (RFLEX) 1 (0-5)
[2016-06-30] MEDS ORDERED: PLAVIX PO (03:48)
[2016-06-30] MEDS ORDERED: ANOROELLIPTA INH (03:48)
[2016-06-30] MEDS ORDERED: GLUCOTRO10 PO (03:48)
[2016-06-30] MEDS ORDERED: DIOVAN320 MG PO (03:49)
[2016-06-30] MEDS ORDERED: GLUCPH PO (03:49)
[2016-06-30] MEDS ORDERED: ASMANEX INH (03:50)
[2016-06-30] MEDS ORDERED: NASONEX NAS (03:50)
[2016-06-30] MEDS ORDERED: TOPXL100 PO (03:50)
[2016-06-30] MEDS ORDERED: COMBIVENT RESPIM4 GM INH (03:51)
[2016-06-30] MEDS ORDERED: PROTONIX PO (03:51)
[2016-06-30] MEDS ORDERED: PROVHFA INH (03:52)
[2016-06-30] MEDS ORDERED: LIPITOR20 PO (03:52)
[2016-06-30] MEDS ORDERED: SINGULAIR1 PO (03:52)
[2016-06-30] MEDS ORDERED: LIOR10 PO (03:52)
[2016-06-30] MEDS ORDERED: LEVEMFLXPN SC (03:53)
[2016-06-30] MEDS ORDERED: NOVOLOG SC (03:54)
[2016-06-30] MEDS ORDERED: FERROUS SULF325 M1 PO (03:54)
[2016-06-30] MEDS ORDERED: VITAMIN D31000 UNIT PO ×2 (03:55)
[2016-06-30] MEDS ORDERED: ASAB PO (03:55)
[2016-06-30 09:58] LABS: GLYCOHEMOGLOBIN (HbA1c) 5.5 % (4.7-6.1)
[2016-06-30 10:10] LABS: CHOL/HDL RATIO(NOT ORDER) 4.1 (0-5); CHOLESTEROL 107 MG/DL (< 200); CPK 34 U/L (0-200); FREE T4 1.36 NG/DL (0.76-1.46); HDL CHOLESTEROL 26 MG/DL (> 49); LDL CHOLESTEROL 46 MG/DL (< 130); NON-HDL CHOLESTEROL 81 MG/DL (< 160); TRIGLYCERIDE 178 MG/DL (< 150); TROPONIN I 0.04 NG/ML (<0.05)
[2016-06-30 10:11] LABS: CK-MB 2.4 NG/ML
[2016-06-30 17:33] LABS: CK-MB 2.6 NG/ML; CPK 39 U/L (0-200); TROPONIN I 0.04 NG/ML (<0.05)
[2016-07-01 01:11] LABS: CPK 38 U/L (0-200)
[2016-07-01 01:12] LABS: CK-MB 2.5 NG/ML
[2016-07-01 06:35] LABS: ALBUMIN 3.2 G/DL (3.5-5.0)
[2016-07-01 11:03] LABS: CARBOXYHEMOGLOBIN 0.7 % (0-3); DEVICE HFNC; HCO3 (ACTUAL BICARBONATE) 26.5 MEQ/L (23-27); HEMOBLOGIN CONTENT 13.7 G/DL (12-16); INSTRUMENT SERIAL # 11843; METHEMOGLOBIN 0.3 % (0-3); O2 CONTENT 16.9 VOL% (18-24); PCO2 (CO2 TENSION) 41 MMHG (35-45); PO2 (O2 TENSION) 57 MMHG (79-93); SAMPLE Arterial; pH 7.43 (7.37-7.43)
[2016-07-01 14:59] LABS: CREATININE 1.28 MG/DL (0.55-1.02)
[2016-07-01 18:44] LABS: BASOPHILS 0 %; EOSINOPHILS 0 %; HEMATOCRIT 38.9 % (36.0-48.0); IMMATURE GRANULOCYTES 0.2 %; IMMATURE GRANULOCYTES ABSOLUTE 0.02 10/3/uL (0.0-0.11); LYMPHOCYTES 9.6 %; LYMPHOCYTES ABSOLUTE 0.85 10/3/uL (0.67-4.30); MEAN CORPUS HGB CONC 30.8 g/dL (32.0-36.0); MEAN CORPUSCULAR HEMOGLOB 26.7 pg (26.0-34.0); MEAN CORPUSCULAR VOLUME 86.4 fL (80-100); MEAN PLATELET VOLUME 9.5 fL (9.2-13.0); MONOCYTES 1.9 %; MONOCYTES ABSOLUTE 0.17 10/3/uL (0.21-1.20); NEUTROPHILS 88.3 %; NEUTROPHILS ABSOLUTE 7.78 10/3/uL (2.02-8.40); PLATELET COUNT 349 10/3/uL (150-400); RBC DISTRIBUTION WIDTH 15.6 % (12.0-16.0); WHITE BLOOD CELLS 8.8 10/3/uL (4.5-10.5)
[2016-07-01 18:45] LABS: MANUAL DIFF NO %
[2016-07-01 19:03] LABS: BUN (BLOOD UREA NITROGEN) 32 MG/DL (6-23); CALCIUM, SERUM 8.7 MG/DL (8.5-10.4); CHLORIDE, SERUM 103 MMOL/L (96-112); CO2 (CARBON DIOXIDE) 30 MMOL/L (24-34); CREATININE 1.35 MG/DL (0.55-1.02); GFR AFRICAN AMERICAN 44 ML/MIN (>=60); GFR NON AFRICAN AMERICAN 38 ML/MIN (>=60); GLUCOSE, SERUM 256 MG/DL (60-99); PHOSPHORUS, SERUM 5.1 MG/DL (2.5-4.5); POTASSIUM, SERUM 3.9 MMOL/L (3.5-5.3); SODIUM, SERUM 141 MMOL/L (135-148)
[2016-07-02 04:18] LABS: ALLENS TEST Pos; BE (BASE EXCESS) -0.4 MEQ/L (0 +/- 2.5); CARBOXYHEMOGLOBIN 1.2 % (0-3); HCO3 (ACTUAL BICARBONATE) 24.4 MEQ/L (23-27); HEMOBLOGIN CONTENT 12.2 G/DL (12-16); INSTRUMENT SERIAL # 8083; METHEMOGLOBIN 0.2 % (0-3); O2 CONTENT 15.5 VOL% (18-24); OPERATOR ID 15231; PCO2 (CO2 TENSION) 41 MMHG (35-45); PO2 (O2 TENSION) 68 MMHG (79-93); SAMPLE Arterial
[2016-07-02 07:07] LABS: BASOPHILS 0 %; EOSINOPHILS 0 %; HEMATOCRIT 41.3 % (36.0-48.0); HEMOGLOBIN 12.7 g/dL (12.0-16.0); IMMATURE GRANULOCYTES 0.2 %; IMMATURE GRANULOCYTES ABSOLUTE 0.02 10/3/uL (0.0-0.11); LYMPHOCYTES 11.4 %; LYMPHOCYTES ABSOLUTE 1.19 10/3/uL (0.67-4.30); MANUAL DIFF NO %; MEAN CORPUS HGB CONC 30.8 g/dL (32.0-36.0); MEAN CORPUSCULAR HEMOGLOB 26.9 pg (26.0-34.0); MEAN CORPUSCULAR VOLUME 87.5 fL (80-100); MEAN PLATELET VOLUME 9.7 fL (9.2-13.0); MONOCYTES 2.2 %; MONOCYTES ABSOLUTE 0.23 10/3/uL (0.21-1.20); NEUTROPHILS 86.2 %; NEUTROPHILS ABSOLUTE 9.04 10/3/uL (2.02-8.40); PLATELET COUNT 384 10/3/uL (150-400); RBC DISTRIBUTION WIDTH 15.6 % (12.0-16.0); RED CELL COUNT 4.72 10/6/uL (4.0-5.6); WHITE BLOOD CELLS 10.5 10/3/uL (4.5-10.5)
[2016-07-02 07:20] LABS: BUN (BLOOD UREA NITROGEN) 37 MG/DL (6-23); CALCIUM, SERUM 9.1 MG/DL (8.5-10.4); CHLORIDE, SERUM 106 MMOL/L (96-112); CO2 (CARBON DIOXIDE) 30 MMOL/L (24-34); CREATININE 1.45 MG/DL (0.55-1.02); GFR AFRICAN AMERICAN 41 ML/MIN (>=60); GFR NON AFRICAN AMERICAN 35 ML/MIN (>=60); GLUCOSE, SERUM 215 MG/DL (60-99); PHOSPHORUS, SERUM 4.7 MG/DL (2.5-4.5); POTASSIUM, SERUM 3.7 MMOL/L (3.5-5.3); SODIUM, SERUM 142 MMOL/L (135-148)
[2016-07-02 07:47] LABS: PROCALCITONIN 0.05 ng/mL (<0.5)
[2016-07-02 17:43] LABS: ASCORBIC ACID (UR NOT ORDER) NEG (NEG); BILIRUBIN, URINE NEGATIVE (NEG); KETONE, URINE NEGATIVE (NEG); LEUKOCYTE ESTERASE(NOT OR LARGE (NEG); WBC (NOT ORDERED) (RFLEX) 150 (0-5)
[2016-07-03 10:39] LABS: BE (BASE EXCESS) 3.2 MEQ/L (0 +/- 2.5); DEVICE VM; HCO3 (ACTUAL BICARBONATE) 28.5 MEQ/L (23-27); HEMOBLOGIN CONTENT 13.2 G/DL (12-16); INSTRUMENT SERIAL # 8083; METHEMOGLOBIN 0.3 % (0-3); O2 CONTENT 17.3 VOL% (18-24); PCO2 (CO2 TENSION) 47 MMHG (35-45); PO2 (O2 TENSION) 74 MMHG (79-93); SAMPLE Arterial; pH 7.41 (7.37-7.43)
[2016-07-03 15:23] LABS: CALCIUM, SERUM 8.8 MG/DL (8.5-10.4); CHLORIDE, SERUM 113 MMOL/L (96-112); CO2 (CARBON DIOXIDE) 29 MMOL/L (24-34); GFR AFRICAN AMERICAN 42 ML/MIN (>=60); GFR NON AFRICAN AMERICAN 37 ML/MIN (>=60); GLUCOSE, SERUM 187 MG/DL (60-99); POTASSIUM, SERUM 3.2 MMOL/L (3.5-5.3)
[2016-07-03 15:25] LABS: BUN (BLOOD UREA NITROGEN) 41 MG/DL (6-23); PHOSPHORUS, SERUM 2.8 MG/DL (2.5-4.5); SODIUM, SERUM 151 MMOL/L (135-148)
[2016-07-03 15:27] LABS: BASOPHILS 0.1 %; BASOPHILS ABSOLUTE 0.01 10/3/uL (0.0-0.16); EOSINOPHILS 0.2 %; EOSINOPHILS ABSOLUTE 0.02 10/3/uL (0.0-0.53); HEMATOCRIT 40.7 % (36.0-48.0); HEMOGLOBIN 12.2 g/dL (12.0-16.0); IMMATURE GRANULOCYTES 0.1 %; IMMATURE GRANULOCYTES ABSOLUTE 0.01 10/3/uL (0.0-0.11); LYMPHOCYTES 13.1 %; LYMPHOCYTES ABSOLUTE 1.66 10/3/uL (0.67-4.30); MEAN CORPUSCULAR HEMOGLOB 26.6 pg (26.0-34.0); MEAN CORPUSCULAR VOLUME 88.9 fL (80-100); MEAN PLATELET VOLUME 9.6 fL (9.2-13.0); MONOCYTES 7.7 %; MONOCYTES ABSOLUTE 0.98 10/3/uL (0.21-1.20); NEUTROPHILS 78.8 %; NEUTROPHILS ABSOLUTE 9.98 10/3/uL (2.02-8.40); PLATELET COUNT 328 10/3/uL (150-400); RBC DISTRIBUTION WIDTH 16.1 % (12.0-16.0); RED CELL COUNT 4.58 10/6/uL (4.0-5.6); WHITE BLOOD CELLS 12.7 10/3/uL (4.5-10.5)
[2016-07-03 15:28] LABS: MANUAL DIFF NO %
[2016-07-03 20:29] LABS: TEG - ANGLE 73.6 DEG (53-72); TEG - COAGULATION INDEX 2.3 (-3 TO 3); TEG - RATE 6.5 MIN (5.0-10.0); TEG PLAVIX/EFFIENT/TICLID(ADP) 90.8 % INHIB (< 40)
[2016-07-03 20:30] LABS: MAX AMP (ADP) 24.9 MM (35-68)
[2016-07-04 00:17] LABS: BUN (BLOOD UREA NITROGEN) 40 MG/DL (6-23); CALCIUM, SERUM 8.7 MG/DL (8.5-10.4); CHLORIDE, SERUM 112 MMOL/L (96-112); CO2 (CARBON DIOXIDE) 28 MMOL/L (24-34); CREATININE 1.24 MG/DL (0.55-1.02); GFR AFRICAN AMERICAN 49 ML/MIN (>=60); GFR NON AFRICAN AMERICAN 42 ML/MIN (>=60); GLUCOSE, SERUM 243 MG/DL (60-99); POTASSIUM, SERUM 3.5 MMOL/L (3.5-5.3); SODIUM, SERUM 151 MMOL/L (135-148)
[2016-07-04 05:09] LABS: BASOPHILS 0.2 %; BASOPHILS ABSOLUTE 0.02 10/3/uL (0.0-0.16); EOSINOPHILS 1.2 %; EOSINOPHILS ABSOLUTE 0.16 10/3/uL (0.0-0.53); HEMATOCRIT 40.7 % (36.0-48.0); IMMATURE GRANULOCYTES 0.2 %; IMMATURE GRANULOCYTES ABSOLUTE 0.03 10/3/uL (0.0-0.11); LYMPHOCYTES 19.5 %; MEAN CORPUS HGB CONC 29.5 g/dL (32.0-36.0); MEAN CORPUSCULAR HEMOGLOB 26.5 pg (26.0-34.0); MEAN PLATELET VOLUME 9.8 fL (9.2-13.0); MONOCYTES 9.6 %; MONOCYTES ABSOLUTE 1.24 10/3/uL (0.21-1.20); NEUTROPHILS 69.3 %; PLATELET COUNT 299 10/3/uL (150-400); RBC DISTRIBUTION WIDTH 15.9 % (12.0-16.0); RED CELL COUNT 4.52 10/6/uL (4.0-5.6); WHITE BLOOD CELLS 12.9 10/3/uL (4.5-10.5)
[2016-07-04 05:10] LABS: MANUAL DIFF NO %
[2016-07-04 05:31] LABS: ALBUMIN 2.9 G/DL (3.5-5.0); BUN (BLOOD UREA NITROGEN) 38 MG/DL (6-23); CALCIUM, SERUM 8.9 MG/DL (8.5-10.4); CHLORIDE, SERUM 110 MMOL/L (96-112); CO2 (CARBON DIOXIDE) 28 MMOL/L (24-34); CREATININE 1.14 MG/DL (0.55-1.02); GFR AFRICAN AMERICAN 54 ML/MIN (>=60); GFR NON AFRICAN AMERICAN 47 ML/MIN (>=60); GLUCOSE, SERUM 213 MG/DL (60-99); PHOSPHORUS, SERUM 2.1 MG/DL (2.5-4.5); SODIUM, SERUM 146 MMOL/L (135-148)
[2016-07-04 05:52] LABS: POTASSIUM, SERUM 2.8 MMOL/L (3.5-5.3)
[2016-07-04 06:19] LABS: PROCALCITONIN 0.14 ng/mL (<0.5)
[2016-07-04 14:42] LABS: BUN (BLOOD UREA NITROGEN) 27 MG/DL (6-23); CALCIUM, SERUM 8.6 MG/DL (8.5-10.4); CHLORIDE, SERUM 109 MMOL/L (96-112); CO2 (CARBON DIOXIDE) 32 MMOL/L (24-34); CREATININE 0.95 MG/DL (0.55-1.02); GFR AFRICAN AMERICAN 68 ML/MIN (>=60); GFR NON AFRICAN AMERICAN 59 ML/MIN (>=60); GLUCOSE, SERUM 193 MG/DL (60-99); POTASSIUM, SERUM 3.1 MMOL/L (3.5-5.3); SODIUM, SERUM 148 MMOL/L (135-148)
[2016-07-04 15:50] LABS: OSMOLALITY, URINE 424 MOSM/KG (50-1200)
[2016-07-04 16:02] LABS: SODIUM, URINE 124 MEQ/L
[2016-07-05 06:47] LABS: BASOPHILS 0.1 %; BASOPHILS ABSOLUTE 0.02 10/3/uL (0.0-0.16); EOSINOPHILS 2.5 %; EOSINOPHILS ABSOLUTE 0.38 10/3/uL (0.0-0.53); HEMATOCRIT 40.6 % (36.0-48.0); HEMOGLOBIN 11.8 g/dL (12.0-16.0); IMMATURE GRANULOCYTES 0.2 %; IMMATURE GRANULOCYTES ABSOLUTE 0.03 10/3/uL (0.0-0.11); LYMPHOCYTES 14.7 %; LYMPHOCYTES ABSOLUTE 2.22 10/3/uL (0.67-4.30); MEAN CORPUS HGB CONC 29.1 g/dL (32.0-36.0); MEAN CORPUSCULAR HEMOGLOB 25.7 pg (26.0-34.0); MEAN CORPUSCULAR VOLUME 88.3 fL (80-100); MONOCYTES 8.8 %; MONOCYTES ABSOLUTE 1.33 10/3/uL (0.21-1.20); NEUTROPHILS 73.7 %; NEUTROPHILS ABSOLUTE 11.08 10/3/uL (2.02-8.40); PLATELET COUNT 295 10/3/uL (150-400); RBC DISTRIBUTION WIDTH 15.9 % (12.0-16.0); WHITE BLOOD CELLS 15.1 10/3/uL (4.5-10.5)
[2016-07-05 06:48] LABS: MANUAL DIFF NO %
[2016-07-05 07:09] LABS: A/G RATIO 0.9 (0.7-1.9); ALBUMIN 2.7 G/DL (3.5-5.0); ALKALINE PHOSPHATASE 102 U/L (45-117); BUN (BLOOD UREA NITROGEN) 23 MG/DL (6-23); CALCIUM, SERUM 8.7 MG/DL (8.5-10.4); CHLORIDE, SERUM 114 MMOL/L (96-112); CO2 (CARBON DIOXIDE) 26 MMOL/L (24-34); GFR AFRICAN AMERICAN 84 ML/MIN (>=60); GFR NON AFRICAN AMERICAN 72 ML/MIN (>=60); GLUCOSE, SERUM 142 MG/DL (60-99); PHOSPHORUS, SERUM 2.6 MG/DL (2.5-4.5); POTASSIUM, SERUM 3.6 MMOL/L (3.5-5.3); SGOT(AST) 36 U/L (5-40); SGPT(ALT) 21 U/L (5-65); SODIUM, SERUM 150 MMOL/L (135-148); TOTAL BILIRUBIN 0.3 MG/DL (0-1.2); TOTAL PROTEIN 5.7 G/DL (6.0-8.5)
[2016-07-06 06:08] LABS: BASOPHILS 0.1 %; BASOPHILS ABSOLUTE 0.02 10/3/uL (0.0-0.16); EOSINOPHILS 3.4 %; EOSINOPHILS ABSOLUTE 0.47 10/3/uL (0.0-0.53); HEMATOCRIT 38.6 % (36.0-48.0); HEMOGLOBIN 9.9 g/dL (12.0-16.0); IMMATURE GRANULOCYTES 0.4 %; IMMATURE GRANULOCYTES ABSOLUTE 0.05 10/3/uL (0.0-0.11); LYMPHOCYTES 17.8 %; LYMPHOCYTES ABSOLUTE 2.44 10/3/uL (0.67-4.30); MEAN CORPUSCULAR VOLUME 86.9 fL (80-100); MEAN PLATELET VOLUME 9.9 fL (9.2-13.0); MONOCYTES 7.8 %; MONOCYTES ABSOLUTE 1.07 10/3/uL (0.21-1.20); NEUTROPHILS 70.5 %; NEUTROPHILS ABSOLUTE 9.69 10/3/uL (2.02-8.40); RBC DISTRIBUTION WIDTH 15.8 % (12.0-16.0); RED CELL COUNT 4.44 10/6/uL (4.0-5.6); WHITE BLOOD CELLS 13.7 10/3/uL (4.5-10.5)
[2016-07-06 06:10] LABS: MEAN CORPUS HGB CONC 25.6 g/dL (32.0-36.0); MEAN CORPUSCULAR HEMOGLOB 22.3 pg (26.0-34.0); PLATELET COUNT 180 10/3/uL (150-400)
[2016-07-06 06:16] LABS: MANUAL DIFF NO %
[2016-07-06 06:24] LABS: BUN (BLOOD UREA NITROGEN) 22 MG/DL (6-23); CALCIUM, SERUM 8.9 MG/DL (8.5-10.4); CHLORIDE, SERUM 111 MMOL/L (96-112); CREATININE 0.88 MG/DL (0.55-1.02); GFR AFRICAN AMERICAN 74 ML/MIN (>=60); GFR NON AFRICAN AMERICAN 64 ML/MIN (>=60); SODIUM, SERUM 144 MMOL/L (135-148)
[2016-07-06 06:25] LABS: CO2 (CARBON DIOXIDE) 21 MMOL/L (24-34); GLUCOSE, SERUM 95 MG/DL (60-99); PHOSPHORUS, SERUM 3.4 MG/DL (2.5-4.5); POTASSIUM, SERUM 3.6 MMOL/L (3.5-5.3)
[2016-07-07 05:35] LABS: BASOPHILS 0.1 %; BASOPHILS ABSOLUTE 0.02 10/3/uL (0.0-0.16); EOSINOPHILS 2.2 %; EOSINOPHILS ABSOLUTE 0.31 10/3/uL (0.0-0.53); HEMATOCRIT 41.3 % (36.0-48.0); IMMATURE GRANULOCYTES 0.6 %; IMMATURE GRANULOCYTES ABSOLUTE 0.08 10/3/uL (0.0-0.11); LYMPHOCYTES 11.7 %; LYMPHOCYTES ABSOLUTE 1.64 10/3/uL (0.67-4.30); MEAN CORPUSCULAR VOLUME 88.8 fL (80-100); MEAN PLATELET VOLUME 10.5 fL (9.2-13.0); MONOCYTES 6.5 %; MONOCYTES ABSOLUTE 0.91 10/3/uL (0.21-1.20); NEUTROPHILS 78.9 %; NEUTROPHILS ABSOLUTE 11.08 10/3/uL (2.02-8.40); RBC DISTRIBUTION WIDTH 15.7 % (12.0-16.0); RED CELL COUNT 4.65 10/6/uL (4.0-5.6)
[2016-07-07 05:36] LABS: HEMOGLOBIN 12.4 g/dL (12.0-16.0); MEAN CORPUSCULAR HEMOGLOB 26.7 pg (26.0-34.0); PLATELET COUNT 255 10/3/uL (150-400)
[2016-07-07 05:37] LABS: MANUAL DIFF NO %
[2016-07-07 05:48] LABS: CALCIUM, SERUM 8.7 MG/DL (8.5-10.4); CHLORIDE, SERUM 110 MMOL/L (96-112); CO2 (CARBON DIOXIDE) 20 MMOL/L (24-34); CREATININE 0.67 MG/DL (0.55-1.02); GFR AFRICAN AMERICAN 100 ML/MIN (>=60); GFR NON AFRICAN AMERICAN 86 ML/MIN (>=60); PHOSPHORUS, SERUM 3.1 MG/DL (2.5-4.5); SODIUM, SERUM 143 MMOL/L (135-148)
[2016-07-07 05:49] LABS: BUN (BLOOD UREA NITROGEN) 14 MG/DL (6-23); GLUCOSE, SERUM 135 MG/DL (60-99); POTASSIUM, SERUM 3.9 MMOL/L (3.5-5.3)
[2016-07-07 13:07] LABS: GLUCOSE CSF 81 MG/DL (45-70); TOTAL PROTEIN, CSF 52.7 MG/DL (15-45)
[2016-07-07 13:16] LABS: CSF BASO 0 % (NO REF RANGE); CSF EOS 2 % (0-1); CSF LYMPH (NOT ORD) 60 % (28-96); CSF MONO 28 % (16-56); CSF SEGS (NOT ORD) 11 % (0-7)
[2016-07-07 13:18] LABS: CSF APPEARANCE (NOT ORD) CLEAR (CLEAR); CSF COLOR (NOT ORD) COLORLESS (COLORLESS); CSF RBC (NOT ORD) 41 MM3 (NO REFERENCE); CSF WBC (NOT ORD) 2 /uL (0-10); CSF XANTHROCHROMIA NEG (NEG)
[2016-07-07 13:21] LABS: CSF BASO 0 % (NO REF RANGE); CSF EOS 0 % (0-1); CSF LYMPH (NOT ORD) 59 % (28-96); CSF MONO 36 % (16-56); CSF SEGS (NOT ORD) 5 % (0-7); CSF WBC (NOT ORD) 3 /uL (0-10)
[2016-07-07 13:22] LABS: CSF APPEARANCE (NOT ORD) CLEAR (CLEAR); CSF COLOR (NOT ORD) COLORLESS (COLORLESS); CSF RBC (NOT ORD) 12 MM3 (NO REFERENCE); CSF XANTHROCHROMIA NEG (NEG)
[2016-07-07 15:13] LABS: ALLENS TEST Pos; BE (BASE EXCESS) -2.2 MEQ/L (0 +/- 2.5); CARBOXYHEMOGLOBIN 0.8 % (0-3); DEVICE HFNC; HCO3 (ACTUAL BICARBONATE) 20.6 MEQ/L (23-27); HEMOBLOGIN CONTENT 14.4 G/DL (12-16); INSTRUMENT SERIAL # 11843; METHEMOGLOBIN 0.4 % (0-3); O2 CONTENT 18.4 VOL% (18-24); OPERATOR ID 13624; PCO2 (CO2 TENSION) 31 MMHG (35-45); PO2 (O2 TENSION) 63 MMHG (79-93); SAMPLE Arterial; pH 7.45 (7.37-7.43)
[2016-07-07 19:11] LABS: ACETYLCHOLINE REC BINDING AB <0.30 nmol/L (<0.31); ACETYLCHOLINE RECEPT BLOCK AB <15 % (<15); ACETYLCHOLINE RECEPTOR MOD AB 12 % (<32); STRIATED MUSCLE ANTIBODY Negative (NEG); STRIATED MUSCLE ANTIBODY TITER ND
[2016-07-08 09:52] LABS: BASOPHILS 0.1 %; BASOPHILS ABSOLUTE 0.02 10/3/uL (0.0-0.16); EOSINOPHILS 2.1 %; EOSINOPHILS ABSOLUTE 0.33 10/3/uL (0.0-0.53); HEMOGLOBIN 12.5 g/dL (12.0-16.0); IMMATURE GRANULOCYTES 0.8 %; IMMATURE GRANULOCYTES ABSOLUTE 0.12 10/3/uL (0.0-0.11); LYMPHOCYTES 13.8 %; LYMPHOCYTES ABSOLUTE 2.15 10/3/uL (0.67-4.30); MEAN CORPUS HGB CONC 30.5 g/dL (32.0-36.0); MEAN CORPUSCULAR HEMOGLOB 26.5 pg (26.0-34.0); MEAN PLATELET VOLUME 10.5 fL (9.2-13.0); MONOCYTES 7.5 %; MONOCYTES ABSOLUTE 1.16 10/3/uL (0.21-1.20); NEUTROPHILS 75.7 %; NEUTROPHILS ABSOLUTE 11.78 10/3/uL (2.02-8.40); PLATELET COUNT 303 10/3/uL (150-400); RBC DISTRIBUTION WIDTH 15.8 % (12.0-16.0); RED CELL COUNT 4.71 10/6/uL (4.0-5.6); WHITE BLOOD CELLS 15.6 10/3/uL (4.5-10.5)
[2016-07-08 10:06] LABS: MANUAL DIFF NO %
[2016-07-08 10:53] LABS: PROCALCITONIN <0.05 ng/mL (<0.5)
[2016-07-08 11:02] LABS: BUN (BLOOD UREA NITROGEN) 12 MG/DL (6-23); CALCIUM, SERUM 9.2 MG/DL (8.5-10.4); CHLORIDE, SERUM 109 MMOL/L (96-112); CO2 (CARBON DIOXIDE) 21 MMOL/L (24-34); CREATININE 0.71 MG/DL (0.55-1.02); GFR AFRICAN AMERICAN 97 ML/MIN (>=60); GFR NON AFRICAN AMERICAN 83 ML/MIN (>=60); GLUCOSE, SERUM 128 MG/DL (60-99); POTASSIUM, SERUM 3.6 MMOL/L (3.5-5.3); SODIUM, SERUM 139 MMOL/L (135-148)
[2016-07-09 05:38] LABS: ALBUMIN 2.3 G/DL (3.5-5.0); BUN (BLOOD UREA NITROGEN) 14 MG/DL (6-23); CALCIUM, SERUM 9.1 MG/DL (8.5-10.4); CHLORIDE, SERUM 107 MMOL/L (96-112); CREATININE 0.66 MG/DL (0.55-1.02); GFR AFRICAN AMERICAN 100 ML/MIN (>=60); GFR NON AFRICAN AMERICAN 86 ML/MIN (>=60); POTASSIUM, SERUM 3.7 MMOL/L (3.5-5.3); SODIUM, SERUM 142 MMOL/L (135-148)
[2016-07-09 05:41] LABS: CO2 (CARBON DIOXIDE) 26 MMOL/L (24-34); GLUCOSE, SERUM 91 MG/DL (60-99); PHOSPHORUS, SERUM 4.2 MG/DL (2.5-4.5)
[2016-07-09 16:03] LABS: ALLENS TEST Pos; CARBOXYHEMOGLOBIN 0.6 % (0-3); HEMOBLOGIN CONTENT 13.6 G/DL (12-16); INSTRUMENT SERIAL # 11843; METHEMOGLOBIN 0.4 % (0-3); O2 CONTENT 15.9 VOL% (18-24); OPERATOR ID 13624; PCO2 (CO2 TENSION) 44 MMHG (35-45); PO2 (O2 TENSION) 52 MMHG (79-93); SAMPLE Arterial; pH 7.42 (7.37-7.43)
[2016-07-09 21:12] LABS: ALLENS TEST Pos; BE (BASE EXCESS) 2.3 MEQ/L (0 +/- 2.5); CARBOXYHEMOGLOBIN 0.7 % (0-3); DEVICE HFNC; HCO3 (ACTUAL BICARBONATE) 26.5 MEQ/L (23-27); HEMOBLOGIN CONTENT 12.9 G/DL (12-16); INSTRUMENT SERIAL # 11843; METHEMOGLOBIN 0.5 % (0-3); PCO2 (CO2 TENSION) 39 MMHG (35-45); PO2 (O2 TENSION) 59 MMHG (79-93); SAMPLE Arterial; pH 7.45 (7.37-7.43)
[2016-07-10 04:25] LABS: BE (BASE EXCESS) 1.5 MEQ/L (0 +/- 2.5); HCO3 (ACTUAL BICARBONATE) 26.1 MEQ/L (23-27); HEMOBLOGIN CONTENT 13.3 G/DL (12-16); INSTRUMENT SERIAL # 8083; METHEMOGLOBIN 0.2 % (0-3); O2 CONTENT 15.6 VOL% (18-24); OPERATOR ID 33449; PCO2 (CO2 TENSION) 41 MMHG (35-45); PO2 (O2 TENSION) 52 MMHG (79-93); SAMPLE Arterial; pH 7.42 (7.37-7.43)
[2016-07-10 05:30] LABS: BASOPHILS 0.2 %; BASOPHILS ABSOLUTE 0.03 10/3/uL (0.0-0.16); EOSINOPHILS 2.9 %; EOSINOPHILS ABSOLUTE 0.36 10/3/uL (0.0-0.53); HEMATOCRIT 41.8 % (36.0-48.0); HEMOGLOBIN 12.6 g/dL (12.0-16.0); IMMATURE GRANULOCYTES 0.6 %; IMMATURE GRANULOCYTES ABSOLUTE 0.08 10/3/uL (0.0-0.11); LYMPHOCYTES 19.1 %; LYMPHOCYTES ABSOLUTE 2.39 10/3/uL (0.67-4.30); MANUAL DIFF NO %; MEAN CORPUS HGB CONC 30.1 g/dL (32.0-36.0); MEAN CORPUSCULAR HEMOGLOB 26.1 pg (26.0-34.0); MEAN CORPUSCULAR VOLUME 86.7 fL (80-100); MEAN PLATELET VOLUME 10.3 fL (9.2-13.0); MONOCYTES 9.4 %; MONOCYTES ABSOLUTE 1.18 10/3/uL (0.21-1.20); NEUTROPHILS 67.8 %; NEUTROPHILS ABSOLUTE 8.49 10/3/uL (2.02-8.40); PLATELET COUNT 305 10/3/uL (150-400); RBC DISTRIBUTION WIDTH 15.8 % (12.0-16.0); RED CELL COUNT 4.82 10/6/uL (4.0-5.6); WHITE BLOOD CELLS 12.5 10/3/uL (4.5-10.5)
[2016-07-10 05:48] LABS: ALBUMIN 2.3 G/DL (3.5-5.0); BUN (BLOOD UREA NITROGEN) 17 MG/DL (6-23); CALCIUM, SERUM 9.2 MG/DL (8.5-10.4); CHLORIDE, SERUM 104 MMOL/L (96-112); CO2 (CARBON DIOXIDE) 26 MMOL/L (24-34); CREATININE 0.78 MG/DL (0.55-1.02); GFR AFRICAN AMERICAN 86 ML/MIN (>=60); GFR NON AFRICAN AMERICAN 74 ML/MIN (>=60); PHOSPHORUS, SERUM 4.9 MG/DL (2.5-4.5); POTASSIUM, SERUM 3.4 MMOL/L (3.5-5.3); SGOT(AST) 29 U/L (5-40); SGPT(ALT) 15 U/L (5-65); SODIUM, SERUM 141 MMOL/L (135-148); TOTAL BILIRUBIN 0.4 MG/DL (0-1.2); TOTAL PROTEIN 6.6 G/DL (6.0-8.5); TROPONIN I 0.03 NG/ML (<0.05)
[2016-07-10 05:51] LABS: A/G RATIO 0.5 (0.7-1.9); ALKALINE PHOSPHATASE 130 U/L (45-117); GLOBULIN 4.3 G/DL (2.5-4.1); GLUCOSE, SERUM 154 MG/DL (60-99)
[2016-07-10 06:27] LABS: PROCALCITONIN 0.11 ng/mL (<0.5)
[2016-07-11 04:22] LABS: BASOPHILS 0.7 %; BASOPHILS ABSOLUTE 0.09 10/3/uL (0.0-0.16); EOSINOPHILS ABSOLUTE 0.26 10/3/uL (0.0-0.53); HEMATOCRIT 38.7 % (36.0-48.0); HEMOGLOBIN 11.7 g/dL (12.0-16.0); IMMATURE GRANULOCYTES ABSOLUTE 0.26 10/3/uL (0.0-0.11); LYMPHOCYTES 26.1 %; LYMPHOCYTES ABSOLUTE 3.31 10/3/uL (0.67-4.30); MEAN CORPUS HGB CONC 30.2 g/dL (32.0-36.0); MEAN CORPUSCULAR HEMOGLOB 25.8 pg (26.0-34.0); MEAN CORPUSCULAR VOLUME 85.2 fL (80-100); MEAN PLATELET VOLUME 10.8 fL (9.2-13.0); MONOCYTES 10.2 %; NEUTROPHILS ABSOLUTE 7.47 10/3/uL (2.02-8.40); PLATELET COUNT 287 10/3/uL (150-400); RBC DISTRIBUTION WIDTH 15.9 % (12.0-16.0); RED CELL COUNT 4.54 10/6/uL (4.0-5.6); WHITE BLOOD CELLS 12.7 10/3/uL (4.5-10.5)
[2016-07-11 04:23] LABS: MANUAL DIFF NO %
[2016-07-11 04:37] LABS: ALLENS TEST Pos; DEVICE Nasal Cannula/cpap+6; HEMOBLOGIN CONTENT 12.5 G/DL (12-16); INSTRUMENT SERIAL # 8083; METHEMOGLOBIN 0.2 % (0-3); O2 CONTENT 15.7 VOL% (18-24); OPERATOR ID 15231; PCO2 (CO2 TENSION) 38 MMHG (35-45); PO2 (O2 TENSION) 60 MMHG (79-93); SAMPLE Arterial; pH 7.45 (7.37-7.43)
[2016-07-11 06:36] LABS: BUN (BLOOD UREA NITROGEN) 19 MG/DL (6-23); CALCIUM, SERUM 9.5 MG/DL (8.5-10.4); CHLORIDE, SERUM 104 MMOL/L (96-112); CO2 (CARBON DIOXIDE) 30 MMOL/L (24-34); GFR AFRICAN AMERICAN 72 ML/MIN (>=60); GFR NON AFRICAN AMERICAN 63 ML/MIN (>=60); GLUCOSE, SERUM 129 MG/DL (60-99); POTASSIUM, SERUM 3.1 MMOL/L (3.5-5.3); SODIUM, SERUM 143 MMOL/L (135-148)
[2016-07-11 06:39] LABS: PHOSPHORUS, SERUM 3.4 MG/DL (2.5-4.5)
[2016-07-11 17:01] LABS: VDRL, CSF Non Reactive (NR)
[2016-07-12 06:03] LABS: ALBUMIN 2880 mg/dL (3300-4800); IGG 1030 mg/dL (758-1612); IGG INDEX 0.47 (0.25-0.75)
[2016-07-12 08:27] LABS: BASOPHILS 0.1 %; BASOPHILS ABSOLUTE 0.02 10/3/uL (0.0-0.16); HEMATOCRIT 41.4 % (36.0-48.0); HEMOGLOBIN 12.8 g/dL (12.0-16.0); IMMATURE GRANULOCYTES 0.5 %; IMMATURE GRANULOCYTES ABSOLUTE 0.07 10/3/uL (0.0-0.11); LYMPHOCYTES 22.8 %; LYMPHOCYTES ABSOLUTE 3.44 10/3/uL (0.67-4.30); MEAN CORPUS HGB CONC 30.9 g/dL (32.0-36.0); MEAN CORPUSCULAR HEMOGLOB 26.3 pg (26.0-34.0); MEAN PLATELET VOLUME 10.3 fL (9.2-13.0); MONOCYTES 11.7 %; MONOCYTES ABSOLUTE 1.76 10/3/uL (0.21-1.20); NEUTROPHILS 62.9 %; PLATELET COUNT 306 10/3/uL (150-400); RBC DISTRIBUTION WIDTH 15.7 % (12.0-16.0); RED CELL COUNT 4.87 10/6/uL (4.0-5.6); WHITE BLOOD CELLS 15.1 10/3/uL (4.5-10.5)
[2016-07-12 08:28] LABS: MANUAL DIFF NO %
[2016-07-12 08:42] LABS: BUN (BLOOD UREA NITROGEN) 20 MG/DL (6-23); CALCIUM, SERUM 8.7 MG/DL (8.5-10.4); CHLORIDE, SERUM 105 MMOL/L (96-112); CO2 (CARBON DIOXIDE) 26 MMOL/L (24-34); CREATININE 0.73 MG/DL (0.55-1.02); GFR AFRICAN AMERICAN 93 ML/MIN (>=60); GFR NON AFRICAN AMERICAN 81 ML/MIN (>=60); GLUCOSE, SERUM 116 MG/DL (60-99); PHOSPHORUS, SERUM 3.4 MG/DL (2.5-4.5); POTASSIUM, SERUM 4.6 MMOL/L (3.5-5.3); SODIUM, SERUM 143 MMOL/L (135-148)
[2016-07-12 09:16] LABS: PROCALCITONIN 0.06 ng/mL (<0.5)
[2016-07-12 14:14] LABS: HSV DNA TYPE 1 Not Detected (NOTDET); HSV DNA TYPE 2 Not Detected (NOTDET)
[2016-07-12 16:45] LABS: MYELIN BASIC PROTEIN 1.28 ng/mL (0.00-5.50)
[2016-07-12 19:59] LABS: ALBUMIN INDEX 10.3 ratio (0.0-9.0); CSF IGG SYNTHESIS RATE <0.0 mg/d (0.0-8.0); CSF IGG/ALBUMIN RATIO 0.16 ratio (0.09-0.25); CSF OLIGOCLONAL BANDS Negative (NEG); CSF OLIGOCLONAL BANDS NUMBER 0 Bands (0-1); IGG INDEX 0.43 ratio (0.28-0.66); IMMUNOGLOBULIN G, SERUM 1030 mg/dL (768-1632)
[2016-07-13 05:28] LABS: BASOPHILS 0.1 %; BASOPHILS ABSOLUTE 0.02 10/3/uL (0.0-0.16); EOSINOPHILS 1.8 %; EOSINOPHILS ABSOLUTE 0.26 10/3/uL (0.0-0.53); HEMATOCRIT 40.6 % (36.0-48.0); HEMOGLOBIN 12.3 g/dL (12.0-16.0); IMMATURE GRANULOCYTES 0.6 %; IMMATURE GRANULOCYTES ABSOLUTE 0.09 10/3/uL (0.0-0.11); LYMPHOCYTES 20.5 %; LYMPHOCYTES ABSOLUTE 2.91 10/3/uL (0.67-4.30); MEAN CORPUS HGB CONC 30.3 g/dL (32.0-36.0); MEAN CORPUSCULAR HEMOGLOB 26.3 pg (26.0-34.0); MEAN CORPUSCULAR VOLUME 86.9 fL (80-100); MEAN PLATELET VOLUME 10.3 fL (9.2-13.0); MONOCYTES 8.2 %; MONOCYTES ABSOLUTE 1.16 10/3/uL (0.21-1.20); NEUTROPHILS 68.8 %; NEUTROPHILS ABSOLUTE 9.74 10/3/uL (2.02-8.40); PLATELET COUNT 328 10/3/uL (150-400); RBC DISTRIBUTION WIDTH 16.1 % (12.0-16.0); RED CELL COUNT 4.67 10/6/uL (4.0-5.6); WHITE BLOOD CELLS 14.2 10/3/uL (4.5-10.5)
[2016-07-13 05:29] LABS: MANUAL DIFF NO %
[2016-07-13 05:38] LABS: CALCIUM, SERUM 8.7 MG/DL (8.5-10.4); CHLORIDE, SERUM 105 MMOL/L (96-112); CO2 (CARBON DIOXIDE) 28 MMOL/L (24-34); CREATININE 1.03 MG/DL (0.55-1.02); GFR AFRICAN AMERICAN 62 ML/MIN (>=60); GFR NON AFRICAN AMERICAN 53 ML/MIN (>=60); PHOSPHORUS, SERUM 3.7 MG/DL (2.5-4.5); POTASSIUM, SERUM 3.7 MMOL/L (3.5-5.3); SODIUM, SERUM 140 MMOL/L (135-148)
[2016-07-13 05:39] LABS: BUN (BLOOD UREA NITROGEN) 26 MG/DL (6-23); GLUCOSE, SERUM 149 MG/DL (60-99)
[2016-07-14 02:10] LABS: M.TB COMP PCR NON RESP NOT DETECTED (NOTDET)
[2016-07-15 11:31] LABS: BASOPHILS 0.1 %; BASOPHILS ABSOLUTE 0.02 10/3/uL (0.0-0.16); EOSINOPHILS ABSOLUTE 0.28 10/3/uL (0.0-0.53); HEMOGLOBIN 10.9 g/dL (12.0-16.0); IMMATURE GRANULOCYTES 0.4 %; IMMATURE GRANULOCYTES ABSOLUTE 0.06 10/3/uL (0.0-0.11); LYMPHOCYTES 22.5 %; LYMPHOCYTES ABSOLUTE 3.11 10/3/uL (0.67-4.30); MEAN CORPUS HGB CONC 29.9 g/dL (32.0-36.0); MEAN CORPUSCULAR VOLUME 87.1 fL (80-100); MEAN PLATELET VOLUME 10.3 fL (9.2-13.0); MONOCYTES 6.1 %; MONOCYTES ABSOLUTE 0.84 10/3/uL (0.21-1.20); NEUTROPHILS 68.9 %; NEUTROPHILS ABSOLUTE 9.53 10/3/uL (2.02-8.40); PLATELET COUNT 364 10/3/uL (150-400); RBC DISTRIBUTION WIDTH 15.9 % (12.0-16.0); RED CELL COUNT 4.19 10/6/uL (4.0-5.6); WHITE BLOOD CELLS 13.8 10/3/uL (4.5-10.5)
[2016-07-15 11:32] LABS: HEMATOCRIT 36.5 % (36.0-48.0); MANUAL DIFF NO %
[2016-07-15 11:42] LABS: CALCIUM, SERUM 8.5 MG/DL (8.5-10.4); CHLORIDE, SERUM 105 MMOL/L (96-112); CO2 (CARBON DIOXIDE) 29 MMOL/L (24-34); CREATININE 0.97 MG/DL (0.55-1.02); GFR AFRICAN AMERICAN 66 ML/MIN (>=60); GFR NON AFRICAN AMERICAN 57 ML/MIN (>=60); POTASSIUM, SERUM 3.6 MMOL/L (3.5-5.3); SODIUM, SERUM 140 MMOL/L (135-148)
[2016-07-15 11:43] LABS: BUN (BLOOD UREA NITROGEN) 22 MG/DL (6-23); GLUCOSE, SERUM 218 MG/DL (60-99)
[2016-07-15 23:10] LABS: BASOPHILS 0.2 %; BASOPHILS ABSOLUTE 0.02 10/3/uL (0.0-0.16); EOSINOPHILS 1.9 %; EOSINOPHILS ABSOLUTE 0.24 10/3/uL (0.0-0.53); HEMATOCRIT 36.2 % (36.0-48.0); HEMOGLOBIN 10.8 g/dL (12.0-16.0); IMMATURE GRANULOCYTES 0.5 %; IMMATURE GRANULOCYTES ABSOLUTE 0.07 10/3/uL (0.0-0.11); LYMPHOCYTES 28.9 %; LYMPHOCYTES ABSOLUTE 3.68 10/3/uL (0.67-4.30); MEAN CORPUS HGB CONC 29.8 g/dL (32.0-36.0); MEAN CORPUSCULAR HEMOGLOB 26.1 pg (26.0-34.0); MEAN CORPUSCULAR VOLUME 87.4 fL (80-100); MEAN PLATELET VOLUME 9.7 fL (9.2-13.0); MONOCYTES 8.2 %; MONOCYTES ABSOLUTE 1.05 10/3/uL (0.21-1.20); NEUTROPHILS 60.3 %; NEUTROPHILS ABSOLUTE 7.67 10/3/uL (2.02-8.40); PLATELET COUNT 308 10/3/uL (150-400); RBC DISTRIBUTION WIDTH 15.8 % (12.0-16.0); RED CELL COUNT 4.14 10/6/uL (4.0-5.6); WHITE BLOOD CELLS 12.7 10/3/uL (4.5-10.5)
[2016-07-15 23:18] LABS: MANUAL DIFF NO %
[2016-07-15 23:31] LABS: BUN (BLOOD UREA NITROGEN) 20 MG/DL (6-23); CALCIUM, SERUM 8.7 MG/DL (8.5-10.4); CHLORIDE, SERUM 108 MMOL/L (96-112); CO2 (CARBON DIOXIDE) 25 MMOL/L (24-34); CREATININE 0.91 MG/DL (0.55-1.02); GFR AFRICAN AMERICAN 72 ML/MIN (>=60); GFR NON AFRICAN AMERICAN 62 ML/MIN (>=60); GLUCOSE, SERUM 168 MG/DL (60-99); POTASSIUM, SERUM 3.6 MMOL/L (3.5-5.3); SODIUM, SERUM 136 MMOL/L (135-148)
[2016-08-02] MEDS ORDERED: DUONEB INH ×2 (17:09→18:19)
[2016-08-02] MEDS ORDERED: IMDUR (17:13)
[2016-08-02] MEDS ORDERED: NASONEX NAS ×2 (17:14→18:11)
[2016-08-02] MEDS ORDERED: FLORASTOR250 MG PO ×2 (17:14→18:08)
[2016-08-02] MEDS ORDERED: LEVEMIR SC (17:16)
[2016-08-02] MEDS ORDERED: NORCO1 TA2 PO ×2 (17:16→18:20)
[2016-08-02] MEDS ORDERED: PRILOSEC40 MG PO (17:32)
[2016-08-02] MEDS ORDERED: ASAB PO ×2 (17:52→18:04)
[2016-08-02] MEDS ORDERED: LIPITOR20 PO ×2 (17:58→18:05)
[2016-08-02] MEDS ORDERED: BROVANA15 MCG INH (18:05)
[2016-08-02] MEDS ORDERED: PULRESP.5 INH (18:06)
[2016-08-02] MEDS ORDERED: PLAVIX PO (18:06)
[2016-08-02] MEDS ORDERED: FERROUS SULF325 M1 PO (18:07)
[2016-08-02] MEDS ORDERED: L20 PO (18:08)
[2016-08-02] MEDS ORDERED: IMDUR30 PO (18:09)
[2016-08-02] MEDS ORDERED: KLONO5 PO (18:09)
[2016-08-02] MEDS ORDERED: LEVEMFLXPN SC (18:10)
[2016-08-02] MEDS ORDERED: GLUCPH PO (18:11)
[2016-08-02] MEDS ORDERED: SINGULAIR1 PO (18:12)
[2016-08-02] MEDS ORDERED: NOVOLOG SC (18:13)
[2016-08-02] MEDS ORDERED: PRILOSEC OTC20 MG PO (18:14)
[2016-08-02] MEDS ORDERED: ZOL100 PO (18:14)
[2016-08-02] MEDS ORDERED: VITAMIN D31000 UNIT PO (18:15)
[2016-08-02] MEDS ORDERED: SYMBICORT 160/41 INH INH (18:15)
[2016-08-02] MEDS ORDERED: ACETSUP650 PR (18:16)
[2016-08-02] MEDS ORDERED: BISR PR (18:18)
== END 2016-07-16 12:14 | DRG 70 ==
LOC: ER 02:25 → 1SO 06:28 → IMCU 07-03 12:48 → 1SO 07-04 15:34
PROVIDERS: Hospitalist; Internal Medicine; Internal Medicine Critical Care Medicine; Psychiatry & Neurology Neurology; Specialist
PROC: 5A09457 Assistance with Respiratory Ventilation, 24-96 Consecutive Hours, Continuous Positive Airway Pressure (ICD-10-PCS; 2016-07-01)
PROC: 009U3ZX Drainage of Spinal Canal, Percutaneous Approach, Diagnostic (ICD-10-PCS; principal; 2016-07-07)
DX: G93.41 Metabolic encephalopathy (principal); J69.0 Pneumonitis due to inhalation of food and vomit; J96.21 Acute and chronic respiratory failure with hypoxia; A41.9 Sepsis, unspecified organism; B95.2 Enterococcus as the cause of diseases classified elsewhere; E11.9 Type 2 diabetes mellitus without complications; I10 Essential (primary) hypertension; N39.0 Urinary tract infection, site not specified; R47.01 Aphasia; I69.351 Hemiplegia and hemiparesis following cerebral infarction affecting right dominant side; J44.9 Chronic obstructive pulmonary disease, unspecified; G40.209 Localization-related (focal) (partial) symptomatic epilepsy and epileptic syndromes with complex partial seizures, not intractable, without status epilepticus; I25.10 Atherosclerotic heart disease of native coronary artery without angina pectoris; Z99.81 Dependence on supplemental oxygen; E87.70 Fluid overload, unspecified; E78.5 Hyperlipidemia, unspecified; G47.33 Obstructive sleep apnea (adult) (pediatric); E66.9 Obesity, unspecified; M79.7 Fibromyalgia; F41.1 Generalized anxiety disorder; K21.9 Gastro-esophageal reflux disease without esophagitis; I73.9 Peripheral vascular disease, unspecified; Z79.4 Long term (current) use of insulin; Z79.84 Long term (current) use of oral hypoglycemic drugs; Z79.82 Long term (current) use of aspirin; Z79.02 Long term (current) use of antithrombotics/antiplatelets; Z79.899 Other long term (current) drug therapy; Z87.891 Personal history of nicotine dependence; Z85.828 Personal history of other malignant neoplasm of skin; Z88.5 Allergy status to narcotic agent; Z88.8 Allergy status to other drugs, medicaments and biological substances
CPT/HCPCS: 36600; 62270; 70450; 70544; 70547; 70551-52; 71010; 71275; 72125; 72128; 72131; 74000; 74176; 77003; 80048; 80053; 80061; 80069; 81001; 82040; 82042; 82140; 82330; 82550; 82553; 82565; 82607; 82746; 82784; 82784-59; 82803; 82805; 82945; 82947; 82962; 83036; 83519; 83519-59; 83605; 83735; 83873; 83880; 83916; 83935; 84100; 84132; 84145; 84157; 84295; 84300; 84439; 84484; 84999; 85014; 85025; 85347; 85384; 85576; 85576-59; 85610; 85730; 86255; 86403; 86403-59; 86592; 87015; 87040; 87070; 87077; 87086; 87102; 87116; 87186; 87205; 87210; 87327; 87529; 87529-59; 87556; 87641; 88112; 89051; 93005; 93882; 93970; 94640; 95816; 95819; 96374; 97110-GO; 97110-GP; 97112-GO; 97162-GP; 97166-GO; 97530-GP; 97535-GO; 99285; A9270-GY; C8929; C9113; C9254; G8978-CM-GP; G8979-CK-GP; G8987-CL-GO; G8988-CK-GO; J0133; J0360; J1170; J1652; J1953; J1956; J2543; J2920; J2930; J3370; J3475; J3486; Q9957; Q9967